=== PATIENT | female | born 1970 | race Caucasian/White ===

== ENCOUNTER → 2017-12-30 08:48 | Outpatient (CLI) | payer BC, SELFPAY ==
--- NOTE | 2017-12-30 08:52 | BI_ITS ---
MAMMOGRAPHY - BILATERAL SCREENING REASON FOR EXAM: Female, 47 years old. Routine annual screening examination. PERTINENT HISTORY: Aunt with breast cancer. TECHNIQUE: Digital bilateral breast luis (3D mammographic acquisition) in the CC and MLO projections. 2-D mediolateral oblique (MLO) and craniocaudad (CC) views of both breasts were obtained. CAD: Full Field Digital Mammography with Computer Added Detection was performed. COMPARISON: Comparison is made with prior study dated October 28, 2016 and October 24, 2015. FINDINGS: Breast Composition: The breasts are heterogeneously dense, which may obscure small masses. There are no dominant masses or suspicious calcifications. Stable benign-appearing left axillary lymph nodes. No other significant abnormalities are identified. There has been no significant change since the prior study. BI/SCREENING MAMM (CAD), BILAT IMPRESSION: Stable bilateral screening mammogram. Yearly follow-up mammogram recommended. (A) ASSESSMENT CATEGORY: BIRADS Category 2: Benign. A letter regarding these results will be sent to the patient by the facility within 30 days. Approximately 10% of breast cancers are not detected by mammography. A normal mammogram should not delay biopsy of a clinically suspicious abnormality. [id number] Electronically Signed: Jordon Real MD at 10:44 EDT Tel [phone], Service support ,
[2018-01-04 11:21] LABS: HPV Reflexed? NOT INDICATED
== END ==
PROVIDERS: Family Provider Internal Medicine; PCP Internal Medicine; Visit Provider Obstetrics & Gynecology
DX: Z12.31 Encounter for screening mammogram for malignant neoplasm of breast (principal); Z12.4 Encounter for screening for malignant neoplasm of cervix
CPT/HCPCS: 77063; 77067; 88175; G0145

== ENCOUNTER → 2018-02-15 13:10 | Outpatient (CLI) | payer SELFPAY ==
--- NOTE | 2018-02-15 13:14 | CT_ITS ---
STUDY: CT CHEST WITHOUT CONTRAST REASON FOR EXAM: Female, 47 years old. Elevated cholesterol. This is a cardiac over read examination. RADIATION DOSAGE (If Supplied By Facility): CTDIvol = ( 12.19 ) mGy, DLP = ( 170.66 ) mGycm TECHNIQUE: Transaxial imaging was performed without the administration of intravenous contrast material. Individualized dose optimization techniques were used for this CT. COMPARISON: None. FINDINGS: Small benign-appearing bilateral axillary lymph nodes. The lungs are normal. There is no demonstrated pleural abnormality. Normal heart and pericardium. Normal mediastinum. Normal hilar regions. Normal unenhanced pulmonary arteries. Normal aorta arch and descending thoracic aorta. There are degenerative changes of the thoracic spine. There is no demonstrated abnormality of the visualized upper abdomen. CT/Limited Chest CT w/CCTA IMPRESSION: Normal unenhanced CT Chest examination. Electronically Signed: Jordon Real MD at 9:41 EST Tel [phone], Service support ,
[2018-02-15 13:22] VITALS: BP 106/50; PULSE 66; RESP 18; O2SAT 98; BMI 30.7
--- NOTE | 2018-02-15 17:53 | CA.SCORE ---
Calcium Scoring Date of Study:: 02/15/18 Coronary Calcium Scoring: Coronary calcium score: 0.0 Conclusion: Coronary calcium score: 0.0 Results: The patient underwent high resolution CT imaging of the chest on 02/15/2018. Images were examined and analyzed for the presence and extent of coronary artery calcification using coronary calcium quantification software. The patient was reported as tolerating the procedure well with no obvious complications. The coronary calcium score was reported at 0.0. Based upon pre-published reference tables this is indicative of no identifiable atherosclerotic plaque with very low risk of cardiovascular disease with less than 5% chance of the presence of coronary artery disease. Impression: Coronary calcium score: 0.0 This note was generated with InflaRxation software. It may contain incorrect words, spelling, and punctuation that were not noted in checking the note before signing.
--- NOTE | 2018-02-15 17:56 | CCTA_ITS ---
Calcium Scoring Date of Study:: 02/15/18 Coronary Calcium Scoring: Coronary calcium score: 0.0 Conclusion: Coronary calcium score: 0.0 Results: The patient underwent high resolution CT imaging of the chest on 02/15/2018. Images were examined and analyzed for the presence and extent of coronary artery calcification using coronary calcium quantification software. The patient was reported as tolerating the procedure well with no obvious complications. The coronary calcium score was reported at 0.0. Based upon pre-published reference tables this is indicative of no identifiable atherosclerotic plaque with very low risk of cardiovascular disease with less than 5% chance of the presence of coronary artery disease. Impression: Coronary calcium score: 0.0 This note was generated with NativeEnergyation software. It may contain incorrect words, spelling, and punctuation that were not noted in checking the note before signing.
== END ==
PROVIDERS: Family Provider Internal Medicine; PCP Internal Medicine; Referring Provider Internal Medicine; Visit Provider Internal Medicine
DX: E78.00 Pure hypercholesterolemia, unspecified (principal); R79.89 Other specified abnormal findings of blood chemistry
CPT/HCPCS: 75571; 76380

== ENCOUNTER → 2018-05-07 09:28 | Outpatient (CLI) | payer BC, SELFPAY ==
[2018-02-15 13:22] VITALS: BMI 30.7
== END ==
PROVIDERS: Family Provider Internal Medicine; PCP Internal Medicine; Referring Provider Internal Medicine; Visit Provider Internal Medicine
DX: E78.00 Pure hypercholesterolemia, unspecified (principal)
CPT/HCPCS: 36415; 80061; 83704

== ENCOUNTER 2018-07-22 07:00 | Outpatient (RCR) | payer BC, SELFPAY ==
--- NOTE | 2018-07-12 18:02 | HP.PTEVAL ---
Patient's Visit Information CRISTOFER NEWTON is a 47 year old F referred to Physical Therapy by Eileen Wayne MD with a diagnosis of BPPV. Date of Evaluation: 07/12/18 Physical Therapist: Boone Pham DPT, OCS, CSCS - Visit Plan Frequency: 1-2x /Week Duration: 2-4 Weeks Plan: 1-2x/week for 2-4 weeks as needed for positional treatments adn enusre return to functiona nd balance. - Subjective Findings: Started vertigo last upon waking, nauseous adn dizzy. Walked into wall in the morning. Spinning if she moves head too much. Spins at home when lie down adn then got nauseous. Lasted a few minutes. Upon moving she just does not feel right. Sleeping is OK unless she turns. 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 No hobbies. Shops and hangs out with friends btu currently avoids walking due to this feeling. Basic aDLS are OK just careful, unable to bend fast. - Objective Walks and trasnfers I. c/s AROM WFL but hesitant to look up and down. no pain. 4/5 UE strength. Balance is good btu does not feel steady. - L Hallpike, + R hallpike for up torsional nystagmus 8 seconds, treated with R Daija 2x, then negative. Walkd out normally - Balance Scores Functional Gait Assessment Score: 28 % Disability: 6.6700 - Goals Goal 1:: Lie down and bend over without dizzyness. Goal Time Frame: 2-4 Weeks Goal 2:: Back to walking with friends without issues Goal Time Frame: 4-6 Weeks Goal 3:: FGA Goal Time Frame: 2-4 Weeks - Rehabilitation Potential Physical Therapy Diagnosis: BPPV R post canal. Rehabilitation Potential: Good - Anticipated Interventions Patient/Client Instruction: Educate patient on: Condition, Plan of Care For the Purpose of:: To increase tolerance to activity/condition/position, To improve ability of physical actions for home/community/work/leisure Comment: posional and return to function For the Purpose of:: To increase tolerance to activity/condition/position, To improve ability of physical actions for home/community/work/leisure Thank you for the opportunity to evaluate your patient. For Medicare and Medicare HMO plans, please review the plan of care and approve it. It will need to be FAXED BACK to us at [phone] for Medicare purposes. For Medicare only, by signing this I certify the plan of care. Please let me know if there are questions or concerns regarding this plan of care. Physician Signature: Date:
--- NOTE | 2018-07-22 07:11 | HP.PTDCSUM ---
HP - PT D/C Summary It has been my pleasure to treat CRISTOFER NEWTON under orders from Eileen Wayne MD, for the diagnosis of BPPV for a total of 2 visit(s). Discharge Date: 07/22/18 Please see the following information for a summary of their discharge status. - Subjective Subjective: No spinning , feel much better. Has felt 100% for the majority of the week. Activities pretty normal. To Dr. Wayne. Balance feels good. - Overall Improvement % Improvement: 100 - Objective Objective/Function: - B hallpike today and - roll test. Balance better and feeling normal. - Goals Goal 1:: Lie down and bend over without dizzyness. Goal Progress: Goal Met Goal 2:: Back to walking with friends without issues Goal Progress: Goal Met Goal 3:: FGA Goal Progress: Goal Met - Plan Plan: D/C, dizzyness resolved, will contact doctor if it returns. - D/C Information Discharge Comments: Did have positional vertigo and treated successfully. Resolved. Will contact doctor if it returns. If there are questions or concerns regarding this patient's physical therapy, please feel free to call me at [phone]. Thank you for the referral of this patient. Sincerely, Boone Pham, DPT, OCS, CSCS
== END 2018-07-22 16:16 | disposition home or self-care (01) ==
LOC: PT 07:00
PROVIDERS: Family Provider Internal Medicine; PCP Internal Medicine; Referring Provider Internal Medicine; Visit Provider Internal Medicine
DX: H81.10 Benign paroxysmal vertigo, unspecified ear (principal)
CPT/HCPCS: 97161; 97530

== ENCOUNTER → 2018-12-31 08:51 | Outpatient (CLI) | payer BC, SELFPAY ==
--- NOTE | 2018-12-31 08:54 | BI_ITS ---
MAMMOGRAPHY - BILATERAL SCREENING REASON FOR EXAM: Female, 48 years old. Routine annual screening examination. PERTINENT HISTORY: Aunt with breast cancer. TECHNIQUE: Digital bilateral breast bryan (3D mammographic acquisition) in the CC and MLO projections. 2-D mediolateral oblique (MLO) and craniocaudad (CC) views of both breasts were obtained. CAD: Full Field Digital Mammography with Computer Added Detection was performed. COMPARISON: Comparison is made with prior examination dated December 30, 2017 and October 28, 2016. FINDINGS: Breast Composition: The breasts are heterogeneously dense, which may obscure small masses. There are no dominant masses or suspicious calcifications. Stable benign-appearing bilateral axillary lymph nodes. No other significant abnormalities are identified. There has been no significant change since the prior study. BI/SCREEN MAMM (CAD) W/BRYAN BILAT IMPRESSION: Stable bilateral screening mammogram. Yearly follow-up mammogram recommended. (A) ASSESSMENT CATEGORY: BIRADS Category 2: Benign. A letter regarding these results will be sent to the patient by the facility within 30 days. Approximately 10% of breast cancers are not detected by mammography. A normal mammogram should not delay biopsy of a clinically suspicious abnormality. [id number] Electronically Signed: Jordon Real, at 8:31 EDT , Service support ,
== END ==
PROVIDERS: Family Provider Internal Medicine; PCP Internal Medicine; Referring Provider Obstetrics & Gynecology; Visit Provider Obstetrics & Gynecology
DX: Z12.31 Encounter for screening mammogram for malignant neoplasm of breast (principal); Z80.3 Family history of malignant neoplasm of breast
CPT/HCPCS: 77063; 77067

== ENCOUNTER → 2019-01-02 17:55 | Outpatient (CLI) | payer BC, SELFPAY ==
[2018-02-15 13:22] VITALS: BMI 30.7
[2019-01-05 14:59] LABS: HPV APTIMA, High Risk Negative (Negative)
== END ==
PROVIDERS: Family Provider Internal Medicine; PCP Internal Medicine; Referring Provider Obstetrics & Gynecology; Visit Provider Obstetrics & Gynecology
DX: Z12.4 Encounter for screening for malignant neoplasm of cervix (principal)
CPT/HCPCS: 87086; 87088; 87624; 88175; G0145

== ENCOUNTER → 2020-01-10 12:17 | Outpatient (CLI) | payer BC, SELFPAY ==
--- NOTE | 2020-01-10 12:20 | BI_ITS ---
MAMMOGRAPHY - BILATERAL SCREENING REASON FOR EXAM: Female, 49 years old. Routine annual screening examination. PERTINENT HISTORY: Aunt with breast cancer. TECHNIQUE: Digital bilateral breast bryan (3D mammographic acquisition) in the CC and MLO projections. 2-D mediolateral oblique (MLO) and craniocaudad (CC) views of both breasts were obtained. CAD: Full Field Digital Mammography with Computer Added Detection was performed. COMPARISON: Comparison is made with prior study dated 12/31/2018 and 12/30/2017. FINDINGS: Breast Composition: The breasts are heterogeneously dense, which may obscure small masses. There are no dominant masses or suspicious calcifications. Benign appearing left axillary lymph nodes. No other significant abnormalities are identified. There has been no significant change since the prior study. BI/SCREEN MAMM (CAD) W/BRYAN BILAT IMPRESSION: Stable bilateral screening mammogram. Yearly follow-up mammogram recommended. (A) ASSESSMENT CATEGORY: BIRADS Category 2: Benign. A letter regarding these results will be sent to the patient by the facility within 30 days. Approximately 10% of breast cancers are not detected by mammography. A normal mammogram should not delay biopsy of a clinically suspicious abnormality. [id number] Electronically Signed: Jordon Real, at 14:10 EDT , Service support ,
== END ==
PROVIDERS: PCP Internal Medicine; Referring Provider Obstetrics & Gynecology; Visit Provider Obstetrics & Gynecology
DX: Z12.31 Encounter for screening mammogram for malignant neoplasm of breast (principal); Z80.3 Family history of malignant neoplasm of breast
CPT/HCPCS: 77063; 77067

== ENCOUNTER → 2020-01-27 10:33 | Outpatient (CLI) | payer BC, SELFPAY ==
[2018-02-15 13:22] VITALS: BMI 30.7
[2020-01-27 11:23] LABS: AST(SGOT) 23 U/L (15-37); Alanine Aminotransfer ALT/SGPT 39 U/L (13-56); Albumin, Serum 3.6 g/dL (3.2-5.0); Alkaline Phosphatase 117 U/L (45-117); Bilirubin, Direct 0.17 mg/dL (0.00-0.30); Globulin 3.8 g/dL (2.2-4.2); Protein, Total 7.4 g/dL (6.4-8.2)
== END ==
PROVIDERS: PCP Internal Medicine; Referring Provider Internal Medicine; Visit Provider Internal Medicine
DX: E78.00 Pure hypercholesterolemia, unspecified (principal)
CPT/HCPCS: 36415; 80061; 80076; 83704

== ENCOUNTER 2020-07-04 06:51 | Outpatient (RCR) | payer BC, SELFPAY ==
--- NOTE | 2020-07-04 11:42 | HP.PTEVAL_ITS ---
Patient's Visit Information CRISTOFER NEWTON is a 49 year old F referred to Physical Therapy by Dr. Eileen Wayne MD with a diagnosis of R hip and leg pain. Date of Evaluation: 07/04/20 Physical Therapist: Lan Byrne DPT - Visit Plan Frequency: 1-2x /Week Duration: 4-6 Weeks Plan: Start with lumbar extension progression including prone press ups, standing lumbar extension, and hip extension progression with joint mobs. I educated patient about frequency of exercises and not sitting for too long. Pt. to get up atleast every hour and walk and extend lumbar spine. Pt. consents. Once symptoms have started to resolve add in core stability exercise and progre ss walking program. - Subjective Pt. is here today for her initial evaluation with diagnosis of R hip and leg pain. Pt. reports having pain for a few months now. No mech of injury. Pt. reports R sided leg pain that starts on the lateral aspect of leg and radiates ti her groin and down her leg. Pt. reports increased pain with increased activity. Ice seems to help and sleeping in reclining chair or with knees proped with pillow. Pt. has been more sedintary since start of COV and is working at home. Pt. reports sitting at her desk at work upto 4 hours at a time without getting up. Pt. is hopeful to - Pain R hip Pain Intensity (Out of 10): 6 - Objective POSTURE: Pt. has general flexed pposture. Equal iliac crest heights. No lateral shift, no off loading of LEs. PALPATION: Pt. has no tenderness at anterior hip, greater trochanter, or HS musculature. Pt. has stiffness noted in her lumbar spine and into hip extension. NEURO: Pt. has normal sensation with light touch. Pt. has normal DTR of BLEs throughout achilles and patellar tendons. Pt. to rise on heels and toes without issues. ROM: Lumbar spine: flexion min loss NE (tightness), extension min loss NE, SB nil loss NE, rotation nil loss NE. TIght HS bilaterally, TIght hip flexors bilaterally. Tightness in her IT band. MMT: PT. has dencent overall strength in her BLEs. RLE: ankle/knee 5/5 throughout; hip- flexion 4/5, abd 4/5, ext 4/5. LLE- ankle/knee 5/5 throughout; hip- flexion 4+/5, abd 4+/5, ext 4/5. Core strength-poor. GAIT: Pt. has normal gait pattern, sight collapsing down on R side during R stance phace, but overall had decent gait pattern. Pt. did describe increased R anterior and medial thigh pain with intial walking. - Special Tests L/S Slump test left side: Negative L/S Slump test right side: Negative L/S Left Straight Leg Raise: Negative L/S Right Straight Leg Raise: Negative L/S Left Femoral Nerve Tension: Negative L/S Right Femoral Nerve Tension: Negative Lumbar Standing: Flexion - Mechanical Response: No effect Lumbar Standing: Flexion - Symptoms During Testing: No effect Lumbar Standing: Flexion - Symptoms After Testing: No effect Lumbar Standing: Extension - Mechanical Response: No effect Lumbar Standing: Extension - Symptoms During Testing: No effect Lumbar Standing: Extension - Symptoms After Testing: Better Lumbar Standing: Right Side Glides - Mechanical Response: No effect Lumbar Standing: Right Side [place] - Symptoms During Testing: No effect Lumbar Standing: Right Side [place] - Symptoms After Testing: No effect Lumbar Standing: Left Side [place] - Mechanical Response: No effect Lumbar Standing: Left Side [place] - Symptoms During Testing: No effect Lumbar Standing: Left Side [place] - Symptoms After Testing: No effect Lumbar Lying: Extension - Mechanical Response: No effect Lumbar Lying: Extension - Symptoms During Testing: No effect Lumbar Lying: Extension - Symptoms After Testing: Better - Goals Goal 1:: LTG: Pt. to be I with HEP. Goal Time Frame: 2-4 Weeks Goal 2:: LTG: Pt. to ambulate unlimited distances without R hip or R leg pain. Goal Time Frame: 2-4 Weeks Goal 3:: STG: Pt. to has 0-1/10 pain in R hip and leg after driving or sitting short distances/times. Goal Time Frame: 2-4 Weeks Goal 4:: LTG: Pt. to negotiate steps with reciprocal pattern with 1 HR without increase in RLE pain. Goal Time Frame: 4-6 Weeks Goal 5:: LTG: Pt. to be educated in core strengthening and prophalxis techniques to reduce risk for future occurance. Goal Time Frame: 4-6 Weeks - Rehabilitation Potential Physical Therapy Diagnosis: Pt. has signs and symptoms consistent with R leg pain that starts in anterior lateral hip and does extend into medial thigh. Pt. has greatest issues with initial walking after getting up. She does have some tightness in her quad, hip flexor and IT band. Pt. did have a positive response with trunk extension and hip extension progression. I woule like her to start with trunk extension progression x6 times per day for 1 weeks. Rehabilitation Potential: Excellent - Anticipated Interventions Patient/Client Instruction: Educate patient on: Condition, Plan of Care, Risk Factors, Benefits of Fitness Program For the Purpose of:: To facilitate caregiver knowledge, To improve self management, To prevent re-injury, To improve ability to perform tasks related to life management, To improve tolerance to ADL's Therapeutic Exercise to Include: Strength training, Power training, Body mechanics, Postural training, Flexibilty training, Passive ROM, Active ROM, Dynamic Lumbar Stabilization, Girish Exercises For the Purpose of:: To decrease pain, To increase ROM, To improve nutrient delivery to tissue, To increase oxygenation perfusion, To improve muscle performance and motor function, To improve ability to perform ADL's, To improve gait and locomotor functions, To improve health of tissue, To decrease soft tissue restriction, To increase flexibility/ROM Manual Therapy Techniques to Include: Mobilization For the Purpose of:: To decrease pain, To increase ROM, To improve nutrient delivery to tissue, To increase oxygenation perfusion Thank you for the opportunity to evaluate your patient. For Medicare and Medicare HMO plans, please review the plan of care and approve it. It will need to be FAXED BACK to us at [phone] for Medicare purposes. For Medicare only, by signing this I certify the plan of care. Please let me know if there are questions or concerns regarding this plan of care. Physician Signature: Date:
--- NOTE | 2020-09-18 15:20 | HP.PT.NRP ---
CRISTOFER NEWTON was seen in my office for initial evaluation on 07/04/20. The following Plan of Care was established for this patient: Initial Frequency: 1-2x /Week Initial Duration: 4-6 Weeks Patient/Client Instruction: Educate patient on: Condition, Plan of Care, Risk Factors, Benefits of Fitness Program For the Purpose of:: To facilitate caregiver knowledge, To improve self management, To prevent re-injury, To improve ability to perform tasks related to life management, To improve tolerance to ADL's Therapeutic Exercise to Include: Strength training, Power training, Body mechanics, Postural training, Flexibilty training, Passive ROM, Active ROM, Dynamic Lumbar Stabilization, Girish Exercises For the Purpose of:: To decrease pain, To increase ROM, To improve nutrient delivery to tissue, To increase oxygenation perfusion, To improve muscle performance and motor function, To improve ability to perform ADL's, To improve gait and locomotor functions, To improve health of tissue, To decrease soft tissue restriction, To increase flexibility/ROM Manual Therapy Techniques to Include: Mobilization For the Purpose of:: To decrease pain, To increase ROM, To improve nutrient delivery to tissue, To increase oxygenation perfusion This patient was last seen in our office 07/04/20. Pertinent comments regarding their Physical therapy will appear below: Pt. was seen for her initial evaluation in PT with diagnosis of hip pain. Pt. was given lumbar extension progression of exercises to assist. Pt. had a positive response during her initial evaluation. Pt. was to trial these exercises for 1 week and follow up with PT if needed. PT. has not been back and has not been seen in PT for ~8 weeks. Pt. will be DC from PT at this point in time. At this point I will be discontinuing this patient from physical therapy. I would be happy to see this patient again in the future if found appropriate by the physician. Thank you! LUISA ConnT
== END 2020-07-04 19:00 | disposition home or self-care (01) ==
LOC: PT 06:51
PROVIDERS: PCP Internal Medicine; Referring Provider Internal Medicine; Visit Provider Internal Medicine
DX: M79.604 Pain in right leg (principal); M25.551 Pain in right hip
CPT/HCPCS: 97110; 97161

== ENCOUNTER → 2021-02-12 08:15 | Outpatient (CLI) | payer BC, SELFPAY ==
--- NOTE | 2021-02-12 08:17 | BI_ITS ---
MAMMOGRAPHY - BILATERAL SCREENING REASON FOR EXAM: Female, 50 years old. Routine annual screening examination. PERTINENT HISTORY: Aunt with breast cancer. TECHNIQUE: Digital bilateral breast bryan (3D mammographic acquisition) in the CC and MLO projections. 2-D mediolateral oblique (MLO) and craniocaudad (CC) views of both breasts were obtained. CAD: Full Field Digital Mammography with Computer Added Detection was performed. COMPARISON: Comparison is made with prior study dated 01/10/2020 and 12/31/2018. FINDINGS: Breast Composition: The breasts are heterogeneously dense, which may obscure small masses. There are no dominant masses or suspicious calcifications. Stable small benign-appearing bilateral axillary lymph nodes. No other significant abnormalities are identified. There has been no significant change since the prior study. BI/SCRN MAMM (CAD)W/BRYAN BILAT IMPRESSION: Stable bilateral screening mammogram. Yearly follow-up mammogram recommended. (A) ASSESSMENT CATEGORY: BIRADS Category 2: Benign. A letter regarding these results will be sent to the patient by the facility within 30 days. Approximately 10% of breast cancers are not detected by mammography. A normal mammogram should not delay biopsy of a clinically suspicious abnormality. [id number] Electronically Signed: Jordon Real MD at 9:46 EDT , Service support ,
== END ==
PROVIDERS: PCP Internal Medicine; Referring Provider Obstetrics & Gynecology; Visit Provider Obstetrics & Gynecology
DX: Z12.31 Encounter for screening mammogram for malignant neoplasm of breast (principal)
CPT/HCPCS: 77063; 77067

== ENCOUNTER → 2021-08-08 | Outpatient (CLI) | payer BC, SELFPAY ==
[2021-08-08 11:59] LABS: AST(SGOT) 22 U/L (15-37); Alanine Aminotransfer ALT/SGPT 52 U/L (13-56); Albumin, Serum 3.9 g/dL (3.2-5.0); Alkaline Phosphatase 132 U/L (45-117); Bilirubin, Direct 0.22 mg/dL (0.00-0.30); Globulin 3.7 g/dL (2.2-4.2); Protein, Total 7.6 g/dL (6.4-8.2)
[2021-08-08 12:15] LABS: PTHIN 125.7 pg/mL (18.4-80.1)
[2021-08-09 17:07] LABS: HEPATITIS B SURFACE AG Negative (Negative); Hepatitis A IgM Antibody Negative (Negative); Hepatitis B Core AB IgM Negative (Negative)
[2021-08-09 20:16] LABS: Hep C Antibodies 0.1 s/co ratio (0.0-0.9)
== END | disposition home or self-care (01) ==
LOC: LAB 11:04
PROVIDERS: PCP Internal Medicine; Referring Provider Internal Medicine; Visit Provider Internal Medicine
DX: E78.00 Pure hypercholesterolemia, unspecified (principal); E83.52 Hypercalcemia; R79.89 Other specified abnormal findings of blood chemistry
CPT/HCPCS: 36415; 80074; 80076; 82330; 83970

== ENCOUNTER → 2021-09-11 | Outpatient (CLI) | payer BC, SELFPAY ==
--- NOTE | 2021-09-11 10:03 | NM_ITS ---
Nuclear medicine parathyroid SESTAMIBI scan INDICATION: Hyperparathyroidism TECHNIQUE: 24.7 mCi of TECHNETIUM 99M labeled SESTAMIBI injected intravenously with immediate and delayed imaging of the neck/chest. FINDINGS: Initial imaging demonstrates normal, expected activity of the salivary glands and homogenous activity throughout the thyroid gland. On delayed imaging there is relative washout of isotope from the thyroid gland. No ectopic accumulation of isotope. NM/Parathyroid Scan IMPRESSION: No evidence of parathyroid adenoma. Electronically Signed: Rodri Mckenna MD ([place]) at 13:38 EDT ,
== END | disposition home or self-care (01) ==
LOC: NM 10:02
PROVIDERS: PCP Internal Medicine; Referring Provider Internal Medicine; Visit Provider Internal Medicine
DX: E21.3 Hyperparathyroidism, unspecified (principal)
CPT/HCPCS: 78070; A9500

== ENCOUNTER → 2021-09-20 | Outpatient (CLI) | payer BC, SELFPAY ==
[2021-09-20 11:54] LABS: ALB/GLOB Ratio 1.1 RATIO (0.9-2.4); AST(SGOT) 26 U/L (15-37); Alanine Aminotransfer ALT/SGPT 49 U/L (13-56); Albumin, Serum 3.8 g/dL (3.2-5.0); Alkaline Phosphatase 143 U/L (45-117); Anion Gap 3 (5-15); BUN 11 mg/dL (7-18); BUN/Creat Ratio 14.9 RATIO (10-20); Calcium,Total 10.5 mg/dL (8.5-10.1); Chloride 108 mmol/L (98-107); Cholesterol 163 mg/dL (200); Creatinine, Serum 0.74 mg/dL (0.55-1.02); EST Glomerular Filtration Rate 89 mL/min (>60); Est Glom Filt Rate - Afr Amer 107 mL/min (>60); Globulin 3.4 g/dL (2.2-4.2); Glucose 102 mg/dL (74-106); High Density Lipoprotein 38 mg/dL; Potassium 4.2 mmol/L (3.5-5.1); Protein, Total 7.2 g/dL (6.4-8.2); Sodium Level 140 mmol/L (136-145); Triglycerides 111 mg/dL; Very Low Density Lipoprotein 22 mg/dL (5-40)
== END | disposition home or self-care (01) ==
LOC: LAB 10:59
PROVIDERS: PCP Internal Medicine; Referring Provider Internal Medicine; Visit Provider Internal Medicine
DX: R89.9 Unspecified abnormal finding in specimens from other organs, systems and tissues (principal); E78.00 Pure hypercholesterolemia, unspecified
CPT/HCPCS: 36415; 80053; 80061

== ENCOUNTER → 2021-10-09 | Outpatient (CLI) | payer BC, SELFPAY ==
--- NOTE | 2021-10-09 09:23 | US_ITS ---
STUDY: ABDOMINAL ULTRASOUND - RIGHT UPPER QUADRANT REASON FOR VISIT: Female, 51 years old ELEVATED LFT''s TECHNIQUE: Ultrasound evaluation of the right upper quadrant was performed with real-time and static reaves-scale imaging. TECHNICAL QUALITY: Limited. Examination limited by bowel gas. COMPARISON: None. FINDINGS: Liver: The liver measures 14.2 cm. There is increased echogenicity consistent with fatty infiltration. The bile ducts are within normal limits. There is hepatic color flow. The direction of portal flow is hepatopetal. There is no demonstrated mass lesion. Gallbladder: The patient is status post cholecystectomy. Common Bile Duct (C.B.D.): The common bile duct measures 6 mm. Pancreas: There is nonvisualization of the pancreas due to overlying bowel gas. Right Kidney: Normal size of the right kidney. The right kidney measures 10.7 cm x 5.9 cm x 5.2 cm. Normal renal cortex. The right cortex measures 1.5 cm. There is a 6.5 cm x 5.8 cm x 4.9 cm heterogeneous complex solid and cystic mass in the inferior medial aspect of the right kidney. A neoplastic process should be ruled out. Correlation with CT scan is recommended. There is no right hydronephrosis. US/Liver IMPRESSION: Fatty infiltration of the liver. Prior cholecystectomy. 6.5 cm x 5.8 cm x 4.9 cm heterogeneous solid and cystic mass arising from the inferior medial aspect of the right kidney as described. A neoplastic process should be ruled out. Correlation with a CT scan is recommended. Electronically Signed: Jordon Real MD at 11:04 EDT ,
== END | disposition home or self-care (01) ==
PROVIDERS: PCP Internal Medicine; Visit Provider Internal Medicine
DX: K76.0 Fatty (change of) liver, not elsewhere classified (principal); N28.89 Other specified disorders of kidney and ureter; R94.5 Abnormal results of liver function studies; Z90.49 Acquired absence of other specified parts of digestive tract
CPT/HCPCS: 76705

== ENCOUNTER → 2021-10-10 | Outpatient (CLI) | payer BC, SELFPAY ==
--- NOTE | 2021-10-10 09:57 | CT_ITS ---
STUDY: CT ABDOMEN WITH AND WITHOUT CONTRAST REASON FOR EXAM: Female, 51 years old. RENAL MASS RADIATION DOSAGE (If Supplied By Facility): CTDIvol = ( 28.92 ) mGy, DLP = ( 3418.66 ) mGycm TECHNIQUE: Transaxial images were obtained pre and post I.V. administration of IV 100mL Isovue-300, and oral contrast. Sagittal and coronal images were reconstructed. Individualized dose optimization techniques were used for this CT. COMPARISON: Ultrasound 10/09/2021 FINDINGS: The visualized lung bases are unremarkable. The visualized portions of the heart are within normal limits. There is decreased attenuation of the liver consistent with steatosis. There are surgical clips in the gallbladder fossa consistent with a prior cholecystectomy. Normal spleen. Normal pancreas. Normal bilateral adrenal glands. 6 cm round solid heterogeneously enhancing mass of the medial aspect of the lower pole right kidney worrisome for renal cell carcinoma. No evidence of tumor thrombus within the right renal vein or inferior vena cava. No adjacent retroperitoneal lymphadenopathy. Normal left kidney. Normal visualized stomach. Normal small intestine. Normal colon. Normal abdominal aorta. Normal inferior vena cava. Normal retroperitoneum. Normal abdominal wall. Mild levoscoliosis of the lumbar spine with degenerative disc disease. CT/Abdomen W/WO IV Contrast IMPRESSION: 6 cm solid heterogeneously enhancing mass of the medial aspect of the lower pole right kidney most worrisome for renal cell carcinoma. No evidence of metastatic disease. Electronically Signed: Jayden Delgado MD at 10:46 EDT ,
--- NOTE | 2021-10-10 10:47 | CYSPIN_PTH ---
PATIENT: CRISTOFER NEWTON LOC: [place] U#:[id number] AGE/SX: 51/F ROOM: RE10/10/[address]: Dr. Eileen Wayne MD : 1970 BED: DIS: 10/10/2021 SPEC #: [id number] RECD: 10/10/21 13:15 STATUS: SANDRITA PEDRAZA #: [id number] TAMERA: 10/10/21 10:[address]: Eileen Wayne DEPT: CYTOLOGY RECD BY: Reginaldo Mirza Tissues: Urine Procedures: Pap Stain (control) Special Stain Group II Cytospin Fluid HEADER OPERATION: Not noted PRE-OP DIAGNOSIS: Right kidney mass TISSUE SUBMITTED: Urine for cytology DIAGNOSIS CYTOLOGY Urine for cytology (cytospin): Negative for malignant cells. See comment. AM:daily 10/14/2021 COMMENT The specimen primarily contains squamous epithelial cells. Clinical correlation is suggested. CYTOLOGY STUDY Slides are reviewed. CYTOLOGY GROSS Received is 15 ml of yellow hazy fluid labeled with the patient's name and and designated per the requisition as urine. Submitted for cytology preparation. / daily 10/10/2021 TC:5 CPT: 52252
[2021-10-10 12:15] LABS: Bacteria 0 SEEN /hpf (None Seen); Cytology, Body Fluid / CSF SEE PATHOLOGY REPORT; Mucous, Urine 0 SEEN /hpf (<or=2+); Red Blood Cells-Urine 0 SEEN /hpf (0-5); Squamous Epithelial Cells - UA 0 SEEN /hpf (5-10); White Blood Cells 0 SEEN /hpf (0-5)
[2021-10-10 12:19] LABS: Color, Urine Yellow (Yellow); Glucose, Dipstick Normal (Normal); Ketone-Dipstick Negative (Negative); Leukocyte Esterase-Dipstick Negative /ul (Negative); Nitrite-Dipstick Negative (Negative); Occult Blood-Urine Negative /ul (Negative); Protein-Dipstick Negative (Negative); Urine Bilirubin Dipstick Negative (Negative); Urine Clarity Clear (Clear); Urine Urobilinogen Normal (Normal)
== END | disposition home or self-care (01) ==
PROVIDERS: PCP Internal Medicine; Referring Provider Internal Medicine; Visit Provider Internal Medicine
DX: N28.89 Other specified disorders of kidney and ureter (principal)
CPT/HCPCS: 74170; 81001; 88108; 88313; Q9967

== ENCOUNTER 2021-11-07 13:00 | Inpatient (IN) | payer BC, SELFPAY ==
[2021-11-07] VITALS (10 sets, daily range): BP systolic 131–154; BP diastolic 75–89; PULSE 85–104; RESP 15–18; TEMP 2.4–36.9; O2SAT 92–99; BMI 41.6
--- NOTE | 2021-11-07 | KID_PTH ---
PATIENT: CRISTOFER NEWTON LOC: MS3 U#:[id number] AGE/SX: 51/F ROOM: [facility] [place] RE11/07/[address]: Dr. Zach Alanis MD : 1970 BED: 1 DIS: 11/10/2021 SPEC #: [id number] RECD: 11/07/21 15:31 STATUS: SANDRITA PEDRAZA #: [id number] TAMERA: 11/07/21 00:[address]: Zach Alanis DEPT: SURGICAL PATHOLOGY RECD BY: Gabrielle Cheatham ENTERED: 11/10/21 09:02 SP TYPE: KIDNEY OTHR DR: Dr. Eileen Wayne MD Tissues: Kidney, NOS Procedures: Frozen Section (charge) Surgery Specimen Level V HEADER OPERATION: Lap robotic radical nephrectomy PRE-OP DIAGNOSIS: Right renal mass TISSUE SUBMITTED: Right kidney, frozen section FROZEN SECTION DIAGNOSIS Right kidney, radical nephrectomy: Clear cell renal cell carcinoma. SJ:daily 11/07/2021 MICROSCOPIC DIAGNOSIS Right kidney, radical nephrectomy: Clear cell renal cell carcinoma. See cancer summary in the comment section. SJ:daily 11/11/2021 COMMENT KIDNEY CANCER SUMMARY Procedure ? radical nephrectomy Specimen laterality ? right Tumor site - middle Tumor size ? 5 cm in diameter Tumor focality - unifocal Histologic type ? clear cell renal cell carcinoma Sarcomatoid features ? not identified Rhabdoid features ? not identified Histologic grade ? predominantly grade 1 with focal minimal area of grade 2. Tumor necrosis - not identified Tumor extension ? tumor limited to kidney Margins ? uninvolved by invasive carcinoma. Lymphvascular invasion - not identified Regional lymph nodes ? no lymph nodes submitted or found. Pathologic findings in non-neoplastic kidney ? no significant pathologic changes. PATHOLOGIC STAGE: pT1b pNx pMx The above summary is in compliance with [employer] (CAP) Cancer Protocols Checklist and [place] [employer] on Cancer (AJCC), Staging Manual, 8th Ed. Case has been reviewed in consultation with Dr. Klein who concurs with the above diagnosis. IDC:AM MICROSCOPIC DESCRIPTION Slides are reviewed. GROSS DESCRIPTION Received fresh for frozen section diagnosis labeled with the patient's name is a specimen designated right kidney. The specimen consists of a right kidney containing a mass and is surrounded by an irregular envelope of fibroadipose tissue. The fibroadipose tissue measures up to 3 cm in thickness. Neoplasm does not extend into the perirenal fat and is not present at the soft tissue line of the specimen. The specimen weighs 585 gm and measures 21 x 13 x 7 cm. The mass involves the mid portion of the kidney. Dissection of the renal veins, particularly those draining the area of the mass does not show intravascular presence of the neoplasm. On section, the tumorous mass is roughly spherical and measures 5 cm in diameter. It is composed of an orange mass with focal area of hemorrhage. Area of necrosis or softening are not seen. The tumor does not invade the pelvicalyceal system, renal sinus. The tumor is sharply demarcated from the renal parenchyma which appears essentially unremarkable. Satellite nodules of tumor are not seen in the renal tissue. The adrenal gland is not present. A 4 cm segment of ureter is present and essentially unremarkable. Director [employer] sections are submitted in ten cassettes as follows: 1 - frozen section tumor, 2 - vascular and ureteric resection margins, 3 - tumor with adjacent perirenal adipose tissue, 4 - with adjacent renal tissue and perirenal adipose tissue including resection margin, 5 - renal sinus tissue with additional section ureter and renal vessel, 6 - uninvolved renal tissue, 7-10 - more sections of tumor. / SJ:daily 11/10/2021 TC:0 CPT: 43453, 82105
[2021-11-07] MEDS: Lactated Ringers 1,000 ML 15 ML IV ×2 (10:40→15:30)
[2021-11-07 11:01] LABS: Internal QC Validated? YES +Cl - CLEAR BKGD; Pregnancy, Urine Negative Negative
--- NOTE | 2021-11-07 13:03 | HP.PCM_ITS ---
HPI - General General Date of Admission: 11/07/21 Date of Service: 11/07/21 Chief Complaint: Right renal mass HPI Narrative CRISTOFER NEWTON, is a 51 F who presents with a large right renal mass in the central part of the kidney we talked about the difficulty and try to do a partial nephrectomy with such a large mass the risk of recurrence at the very likelihood that this could be a malignancy the very rare chance that this could be an oncocytoma or some type of benign tumor was also discussed with the patient we both agreed to go ahead and proceed with a radical nephrectomy suspected that this is cancer. And we will proceed with a right radical nephrectomy. [facility] Medical History Fatty liver High cholesterol Hypercalcemia Hyperparathyroidism Leg cramps Migraine headache Mixed hyperlipidemia Non-smoker Renal mass Shortness of breath on exertion Vertigo Vitamin D deficiency Wears glasses Home Medications arginine (L-arginine) 500 mg capsule 500 mg PO DAILY 10/23/21 [History Last Taken 11/06/21] cholecalciferol (vitamin D3) 25 mcg (1,000 unit) capsule 50 mcg PO DAILY 10/23/21 [History Last Taken 11/06/21] loratadine 10 mg tablet (Claritin) 10 mg PO DAILY 10/23/21 [History Last Taken 11/06/21] lutein 10 mg tablet 10 mg PO DAILY 10/23/21 [History Last Taken 11/06/21] multivitamin with minerals-folic acid 120 mcg chewable tablet (Centrum Adult 50 Plus Fresh-Fruity) 1 tab PO DAILY 10/23/21 [History Last Taken 11/06/21] norethindrone (contraceptive) 0.35 mg tablet 0.35 ea PO DAILY CONTROL 10/23/21 [History Last Taken 11/06/21] omega 4-gep-cnd-fish oil 60 mg-90 mg-500 mg capsule (Fish Oil) 3 cap PO DAILY 10/23/21 [History Last Taken 11/06/21] rosuvastatin 5 mg tablet 5 mg PO DAILY CHOLESTEROL 10/23/21 [History Last Taken 11/06/21] zinc sulfate 50 mg zinc (220 mg) tablet 50 mg PO DAILY 10/23/21 [History Last Taken 11/06/21] vitamin B complex 1 cap PO DAILY 11/04/21 [History Last Taken 11/06/21] docusate sodium 100 mg capsule (Colace) 100 mg PO BID #20 caps 11/07/21 [Rx Last Taken Unknown] oxycodone-acetaminophen 5 mg-325 mg tablet 1 tab PO Q6H PRN pain 7 days #14 tabs 11/07/21 [Rx Last Taken Unknown] Allergy/AdvReac Type Severity Reaction Status Date / Time No Known Allergies Allergy Verified 11/07/21 11:12 Family History Other Colon cancer Diabetes Surgical History History of hysteroscopy Hx laparoscopic cholecystectomy Hx of appendectomy Hx of colonoscopy Hx of tonsillectomy Social History Smoking Status: Never smoker alcohol intake: never Addt'l Information Additional Findings: ct scan ROS Constitutional Constitutional: Denies chills, fever(s) or malaise Eyes Eyes: Denies blurry vision or change in vision ENT HEENT: Reports none Cardiovascular Cardiovascular: Denies chest pain or palpitations Respiratory/Chest Respiratory/Chest: Denies cough or shortness of breath with exertion Gastrointestinal Gastrointestinal: Denies abdominal pain, constipation or diarrhea Musculoskeletal Musculoskeletal: Denies back pain, joint stiffness or joint swelling Integumentary Integumentary: Denies dry skin, jaundice, lesions or rash Neurologic Neurologic: Denies confusion, syncope or weakness Psychiatric Psychiatric: Reports none; Denies anxiety or depression Endocrine Endocrinology: Denies excessive sweating, fatigue or flushing Hematologic/Lymphatic Hematologic/Lymphatic: Denies anemia, easy bleeding or easy bruising Vital Signs Vital Signs Vital Signs: 11/07/21 10:59 11/07/21 10:59 Temperature 98.5 F Temperature Source Temporal Pulse Rate 99 Respiratory Rate 18 Respiratory Pattern Normal Blood Pressure 135/75 H Blood Pressure Mean 95 Blood Pressure Source Monitor Blood Pressure Position Semi-Fowlers Blood Pressure Location Left Arm Pulse Ox 99 Oxygen Delivery Method Room Air Weight Weight: 100 kg Body Mass Index (BMI) 41.6 Physical Exam Const alert and oriented x3 General Appearance: cooperative HEENT normocephalic, head/scalp atraumatic, EAC's normal and TM's normal bilaterally Eyes PERRL and EOMs intact bilaterally Pupil: sluggish Neck no lymphadenopathy, supple and no JVD General: trachea midline Lymph Lymphatic: no lymphadenopathy noted, lymphedema and lymphadenopathy Resp normal respiratory effort, normal air movement and clear to auscultation bilaterally Cardio regular rate, regular rhythm and peripheral pulses 2+ throughout GI soft to palpation, non-tender and non-distended Extremity normal capillary refill and no clubbing, cyanosis or edema General Extremity: no tenderness to palpation of joints or extremities Skin no rashes or lesions noted General Skin Exam: turgor normal Lesions: no lesions Rashes: no rashes Neuro CN's II-XII intact bilaterally Speech: speech normal Motor Exam: strength 5/5 throughout; Negative for general weakness Psych thought process normal, cooperative and affect normal Appearance: appropriate Results Lab / Micro Data Labs: Laboratory Results - last 24 hr 11/07/21 10:45: Urine Test Negative Assessment & Plan Assessment/Plan (1) Right renal mass: PLAN: Plan to proceed with a right radical nephrectomy.
--- NOTE | 2021-11-07 13:05 | DCINST_ITS ---
Discharge Instructions Diet Discharge Diet: No restrictions, Light diet - advance as tolerated and Soft diet Activity Discharge Activity: May Not Drive Return to work on:: 12/05/21 May shower in (days): 1 Dressing / Incision Call your doctor if you observe: Fever of 101 or Higher and Uncontrolled pain Cleanse incision/area with: Keep Dressing Clean & Dry Follow Up Care Please Follow Up With: Zach Alanis MD Test Results: Test results from this visit will be discussed in further detail at your follow- up appointment, if applicable. Discharge Plan Admission Primary Reason for Your Visit: Right radical nephrectomy Attending Provider: Zach Alanis Primary Care Provider: Eileen Wayne Discharge Orders/Prescriptions Prescriptions: New docusate sodium [Colace] 100 mg capsule 100 mg PO BID Qty: 20 0RF oxycodone-acetaminophen 5-325 mg tablet 1 tab PO Q6H PRN (Reason: pain) 7 Days Qty: 14 0RF Continued rosuvastatin 5 mg tablet 5 mg PO DAILY norethindrone (contraceptive) 0.35 mg tablet 0.35 ea PO DAILY Label Comments: TAKE 1 TABLET BY MOUTH ONCE DAILY Centrum Adult 50 Fresh-Fruity 120 mcg tablet,chewable 1 tab PO DAILY zinc sulfate 50 mg zinc (220 mg) tablet 50 mg PO DAILY loratadine [Claritin] 10 mg tablet 10 mg PO DAILY cholecalciferol (vitamin D3) 25 mcg (1,000 unit) capsule 50 mcg PO DAILY arginine (L-arginine) 500 mg capsule 500 mg PO DAILY lutein 10 mg tablet 10 mg PO DAILY Rx Instructions: give with meal/snack omega 9-hiu-gjk-fish oil [Fish Oil] 60-90-500 mg capsule 3 cap PO DAILY vitamin B complex Capsule 1 cap PO DAILY Referrals / Follow Up: Eileen Wayne MD [Primary Care Provider] - Zach Alanis MD [Med Staff - Active Staff] - Disposition Disposition (needs filled in before D/C Order can be placed): Home, Self Care
[2021-11-07] MEDS: Cefazolin 2 GM in 0.9% Normal Saline 100 ML IV (13:18)
[2021-11-07] MEDS: Bupivacaine 0.25% 30 ML Vial (13:25)
--- NOTE | 2021-11-07 16:17 | OP.PCM_ITS ---
Report of Operation Date of Procedure: 11/07/21 Pre-Operative Diagnosis: Right large renal mass Post-Operative Diagnosis: The same Surgery/Procedure Performed:: Laparoscopic robotic assisted radical nephrectomy Description of Surgical Findings:: This is a 51-year-old female was found to have a large mass in the hilum central part of the right kidney given the appearance on CAT scan it certainly looks very very suspicious for a malignancy it would be extremely difficult partial nephrectomy and therefore try to avoid excessive risk we have recommended we do a complete nephrectomy on the right side since is a central tumor it would be ex tremely difficult to do a partial. Patient is agreeable with this plan and ready to proceed with a radical nephrectomy. Patient was taken back to the operating room after smooth induction of general anesthesia she was placed supine on the operative table she had a BMI of 41, we then underwent a general anesthesia intubation catheter was placed in the bladder we then placed her in full flank position with a lateral approach to the right kidney. The abdomen was prepped and draped in usual sterile fashion went into the abdomen with a camera trocar right arm trocar left arm trocar and for trocar and then placed an air seal port. Then started off by dissecting by reflecting the colon off the kidney by incising the white line of [place] reflecting this all the way off the kidney and then working down near the hilum reflected the duodenum off the kidney sharply and then at the end of [place] the inferior vena cava and the renal vein and then marched my way down until I got underneath the kidney underneath the ureter elevating the gonadal we then used a fourth arm to retract the kidney superiorly and we worked our way underneath the kidney came across the canal with clips and then got to the hilum on dissecting at the hilum we found that it was 2 main renal veins renal artery between it with early branching very difficult hilar dissection after we I was able to dissect out the renal arteries to put 2 clips down 1 clip up and then we took the superior renal vein with 2 clips down and one clip up and then after clipping that when we clipped the inferior renal vein we then transected both the veins and a fine transected the artery and then we elevated the kidney superiorly we then dissected the kidney off the hilum further worked our way up underneath the kidney until we got all the way up to the upper pole and then we released the kidney out the lateral wall dissecting inferiorly and then came across the inferior aspect the kidney the tail with clips coming across the ureter and the gonadal veins inferiorly. Then and the robot was undocked and the Endo Catch bag was introduced through the extraction site the fourth arm site the kidney was put as inside the bag we sent as a frozen came back positive with renal cell carcinoma. The family was made aware of these findings. I then closed the extraction site with a running 0 Vicryl is a very difficult closure since the patient was quite heavy and I was very deep and a small incision and then we looked back into the camera trocar we noticed that a piece of the apical fat was pulled up into the closure so I decided to take down the closure again took down again and then this time we closed the extraction site with interrupted fashion interrupted stitches try to make sure that we only took the fascia and nothing else and after we were done closing we looked back inside and sure enough a piece of serosa of the large colon had pulled up into the closure I use a suction drafter commercial to inspected and just by touching it just barely it pulled off so was the a tiny grab a tiny bit of serosal from the large colon have been grabbed and pulled into the closure and immediately came off just barely touching it with the suction drafter commercial. I then inspected the site where the serosal injury was identified we irrigated inspected there was no succus no leakage no bowel contents came out from the the site it was way down deep in the pelvis would be impossible to place stitches here decided not to call in general surgery I think since it only look like a small serosal tear I do not think it be necessary to do an expiration and any sort of work on the serosal tear in the colon so I decided to leave it alone let the family well aware of the finding about the serosal tear in the colon let her know I will keep her on a clear liquid diet prior longer than expected because of this want to monitor closely we then closed all the sites the other sites with Yan Mccord stitch we closed the air seal port covered stent stitch we emptied out all the air out of the mid and the peritoneum and then we closed all the incisions with subcuticular stitches patient's anesthetic was reversed and she was taken back to PACU in good condition estimated blood loss about 250cc and we copiously irrigated out the abdomen. Currently the patient is undergoing closure of the incisions and being reversed from anesthesia. Surgeon: Zach Alanis Type of Anesthesia: General Drains: rodgers Admit VTE Documentation VTE Present on Admission: No VTE Mechan Device Prophylaxis: SCD's
[2021-11-07] MEDS: 0.9% Normal Saline 1,000 ML 75 ML IV (18:14)
[2021-11-07] MEDS: Morphine 2 MG/ML Syringe IV (18:55)
[2021-11-07] MEDS: 0.9% Saline Lock 10 ML Syringe IV (18:56)
[2021-11-07] MEDS: Acetaminophen 500 MG Tablet PO (21:22)
[2021-11-07] MEDS: Atorvastatin Calcium 10 MG Tablet PO (21:23)
[2021-11-07] MEDS: oxyCODONE 5 MG Tablet PO (21:23)
[2021-11-07] MEDS: Docusate Sodium 100 MG Capsule PO (21:23)
[2021-11-08] VITALS (7 sets, daily range): BP systolic 107–121; BP diastolic 63–67; PULSE 85–100; RESP 16–18; TEMP 36.6–36.8; O2SAT 91–98
[2021-11-08] MEDS: Acetaminophen 500 MG Tablet PO ×4 (01:38→20:47)
[2021-11-08] MEDS: 0.9% Normal Saline 1,000 ML 75 ML IV (05:48)
[2021-11-08 07:17] LABS: Hemoglobin 13.6 g/dL (12.0-15.0); Mean Corp Hgb Conc 33.2 g/dL (32-36); Mean Corpuscular Hgb 32.2 pg (27.0-32.0); Mean Corpuscular Volume 97.2 fL (81-99); Mean Platelet Vol. 11.6 fl (6.2-12.0); Platelet Count 198 K/mm3 (150-450); RBC Distribution Width CV 12.7 % (11.6-14.6); RBC Distribution Width SD 45.3 fl (35.1-43.9); Red Blood Count 4.22 M/mm3 (4.2-5.4); White Blood Count 14.2 K/mm3 (4.4-11.0)
[2021-11-08 07:31] LABS: Anion Gap 6 (5-15); BUN 12 mg/dL (7-18); BUN/Creat Ratio 11.8 RATIO (10-20); Calcium,Total 9.6 mg/dL (8.5-10.1); Chloride 111 mmol/L (98-107); Creatinine, Serum 1.02 mg/dL (0.55-1.02); EST Glomerular Filtration Rate 61 mL/min (>60); Est Glom Filt Rate - Afr Amer 74 mL/min (>60); Estimated Creatinine Clearance 50.34 ml/min; Glucose 130 mg/dL (74-106); Potassium 4.3 mmol/L (3.5-5.1); Sodium Level 140 mmol/L (136-145)
[2021-11-08] MEDS: Loratadine 10 MG Tablet PO (09:05)
[2021-11-08] MEDS: Docusate Sodium 100 MG Capsule PO ×2 (09:05→20:26)
--- NOTE | 2021-11-08 09:43 | PCM.PN.GU ---
Subjective Subjective 51-year-old female status post right radical nephrectomy for renal cell carcinoma frozen section was positive after removing the kidney was kidney cancer suspected by imaging. She is doing well no severe abdominal pain White blood count is normal hematocrit and hemoglobin creatinine expected range. We can start advancing to regular diet DC Archer Hep-Lock IV fluids. Objective Data Objective Data Vital Signs: Vital Signs Temp Pulse Resp BP Pulse Ox O2 Del Method O2 Flow Rate 98.0 F 85 18 121/65 H 98 Nasal Cannula 2 11/08/21 09:02 11/08/21 09:02 11/08/21 09:02 11/08/21 09:02 11/08/21 09:02 11/08/21 09:36 11/08/21 09:36 Oxygen Flow Rate (L/min) 2 Oxygen Delivery Method Nasal Cannula Weight: 100 kg Body Mass Index (BMI) 41.6 Intake & Output: Intake and Output for Last 24 Hours 11/06/21 11/07/21 11/08/21 23:59 23:59 23:59 Intake Total 1110 / 1310 1167.5 / 1167.5 Output Total 355 / 755 725 / 725 Balance 755 / 555 442.5 / 442.5 Lab / Micro Data Result Diagrams: 11/08/21 06:37 11/08/21 06:37 Labs: Laboratory Results - last 24 hr 11/07/21 10:45: Urine Test Negative 11/08/21 06:37: WBC 14.2 H, RBC 4.22, Hgb 13.6, Hct 41.0, MCV 97.2, MCH 32.2 H, MCHC 33.2, RDW Std Deviation 45.3 H, RDW Coeff of [place] 12.7, Plt Count 198, MPV 11.6 11/08/21 06:37: Sodium 140, Potassium 4.3, Chloride 111 H, Carbon Dioxide 23.0, Anion Gap 6, BUN 12, Creatinine 1.02, Estim Creat Clear Calc 50.34, Est GFR (MDRD) Af Amer 74, Est GFR (MDRD) Non-Af 61, BUN/Creatinine Ratio 11.8, Glucose 130 H, Calcium 9.6
--- NOTE | 2021-11-08 12:03 | CASEMGMT ---
BHARAT STEPHENS assessment: Face to Face with patient for initial transition planning/care coordination assessment. BHARAT STEPHENS introduced self and role at [facility], pt voices understanding and consents to assessment. Pt is lying in bed in no distress on 2L nc. Pt is A/Ox4 and answers all questions appropriately. Pt's sister is at bedside during assessment.? Care providers, pharmacy,?and demographics verified. ? Presentation: scheduled surgery with Annabelle for renal mass Admitting dx: Lap robotic right radical nephrectomy PCP: [facility] Specialists: Annabelle, uro; [facility] Preferred Pharmacy: [facility] Insurance: [place] Prescription Benefit:?[place] Living Will/HPOA: Pt states has LW/HPOA and were provided to [facility] on admission. Pt states her sister, Lilian Dubon, is HPOA. LNOK: Lilian Dubon, sister/HPOA; Pa Dubon, brother Living Arrangements: Pt lives alone in 1 story home and states no concerns at home. Pt states is independent with ADL's. Pt states her sister will be staying with her for the next week. Transportation: Pt drives self and states no transportation concerns. DME/HHC: Pt has no current DME or need for any further DME. Pt states no hx of HHC or SNF in past. Pt states no concerns with going home at time of discharge. 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 Pt states does not smoke cigarettes or drink ETOH. Pt voices no further concerns/needs. CM to follow for any further discharge planning/needs. Advised pt to ask for CM if any further questions/concerns/needs arise, voices understanding. Pt Goal: Home Plan[place] BHARAT STEPHENS
[2021-11-08] MEDS: oxyCODONE 5 MG Tablet PO (14:48)
[2021-11-08] MEDS: Atorvastatin Calcium 10 MG Tablet PO (20:26)
[2021-11-09] MEDS: Acetaminophen 500 MG Tablet PO ×3 (03:42→20:05)
[2021-11-09 03:46] VITALS: BP 139/76; PULSE 94; RESP 16; TEMP 36.8; O2SAT 94
[2021-11-09 08:02] VITALS: O2SAT 93
[2021-11-09 08:35] VITALS: BP 134/80; PULSE 86; RESP 16; TEMP 36.8; O2SAT 97
[2021-11-09] MEDS: Loratadine 10 MG Tablet PO (08:37)
[2021-11-09] MEDS: Docusate Sodium 100 MG Capsule PO ×2 (08:37→19:56)
--- NOTE | 2021-11-09 10:12 | PCM.PN.GU ---
Subjective Subjective 51-year-old female with status post right nephrectomy for renal cell carcinoma doing well no flatus or bowel movements yet we will do a suppository today fluids hep-locked and Archer catheter is out anticipate discharge tomorrow. Objective Data Objective Data Vital Signs: Vital Signs Temp Pulse Resp BP Pulse Ox O2 Del Method O2 Flow Rate 98.2 F 86 16 134/80 H 97 Room Air 2 11/09/21 08:35 11/09/21 08:35 11/09/21 08:35 11/09/21 08:35 11/09/21 08:35 11/09/21 08:35 11/08/21 09:36 Oxygen Flow Rate (L/min) 2 Oxygen Delivery Method Room Air Weight: 100 kg Body Mass Index (BMI) 41.6 Intake & Output: Intake and Output for Last 24 Hours 11/07/21 11/08/21 11/09/21 23:59 23:59 23:59 Intake Total 1110 / 1310 2448.75 / 2448.75 Output Total 355 / 755 1525 / 1525 Balance 755 / 555 923.75 / 923.75 Lab / Micro Data Result Diagrams: 11/08/21 06:37 11/08/21 06:37
[2021-11-09] MEDS: Bisacodyl 10 MG Suppository RC (11:31)
[2021-11-09 14:30] VITALS: BP 136/77; PULSE 94; RESP 18; TEMP 36.6; O2SAT 99
[2021-11-09] MEDS: Atorvastatin Calcium 10 MG Tablet PO ×2 (19:56)
[2021-11-09 20:30] VITALS: BP 122/74; PULSE 88; RESP 18; TEMP 36.7; O2SAT 95
[2021-11-10] MEDS: Acetaminophen 500 MG Tablet PO ×2 (05:56→11:30)
[2021-11-10 06:00] VITALS: BP 137/77; PULSE 85; RESP 18; TEMP 36.4; O2SAT 96
[2021-11-10 06:45] VITALS: O2SAT 95
--- NOTE | 2021-11-10 07:51 | DS.PCM_ITS ---
Providers Date of Admission: 11/07/21 Primary Care Physician: Dr. Eileen Wayne MD Reason For Visit: LAP ROBOTIC RT RADICAL NEPHRECTOMY Diagnosis Discharge Diagnosis (1) Right renal mass: Status: Acute Code(s): N28.89 - Other specified disorders of kidney and ureter Plan: Plan to proceed with a right radical nephrectomy. (2) Renal cell carcinoma: Status: Acute Code(s): C64.9 - Malignant neoplasm of unspecified kidney, except renal pelvis Medications at Discharge Home Medications arginine (L-arginine) 500 mg capsule 500 mg PO DAILY 10/23/21 cholecalciferol (vitamin D3) 25 mcg (1,000 unit) capsule 50 mcg PO DAILY 10/23/21 loratadine 10 mg tablet (Claritin) 10 mg PO DAILY 10/23/21 lutein 10 mg tablet 10 mg PO DAILY 10/23/21 multivitamin with minerals-folic acid 120 mcg chewable tablet (Centrum Adult 50 Plus Fresh-Fruity) 1 tab PO DAILY 10/23/21 norethindrone (contraceptive) 0.35 mg tablet 0.35 ea PO DAILY CONTROL 10/23/21 omega 1-nad-wha-fish oil 60 mg-90 mg-500 mg capsule (Fish Oil) 3 cap PO DAILY 10/23/21 rosuvastatin 5 mg tablet 5 mg PO DAILY CHOLESTEROL 10/23/21 zinc sulfate 50 mg zinc (220 mg) tablet 50 mg PO DAILY 10/23/21 vitamin B complex 1 cap PO DAILY 11/04/21 docusate sodium 100 mg capsule (Colace) 100 mg PO BID #20 caps 11/07/21 oxycodone-acetaminophen 5 mg-325 mg tablet 1 tab PO Q6H PRN pain 7 days #14 tabs 11/07/21 Hospital Course Summary of Care Provided Hospital Course: normla post op course, adv reg diet, discharged home morning of POST day #3 Physical Exam Const alert and oriented x3 General Appearance: cooperative HEENT normocephalic and head/scalp atraumatic Eyes PERRL and EOMs intact bilaterally Neck supple, no JVD and no carotid bruits Resp normal respiratory effort, normal air movement and clear to auscultation bila terally Cardio regular rate and no murmurs GI normal to inspection, nondistended, normoactive bowel sounds and soft to palpation Extremity normal capillary refill General Extremity: no tenderness to palpation of joints or extremities; Negative for edema Skin no rashes or lesions noted and no wounds General Skin Exam: no breakdown Neuro CN's II-XII intact bilaterally Psych affect normal Appearance: appropriate Weight / BMI Weight Weight: 100 kg Body Mass Index (BMI) 41.6 ABG / Lab / Microbiology Data Result Diagrams: 11/08/21 06:37 11/08/21 06:37 D/C Instructions Discharge Diet: No restrictions, Light diet - advance as tolerated and Soft diet Return to work on: 12/05/21 May shower in (days): 1 Call your doctor if you observe: Fever of 101 or Higher and Uncontrolled pain Cleanse incision/area with: Keep Dressing Clean & Dry Please Follow Up With: Zach Alanis MD Meaningful Use Info Meaningful Use Diagnoses (Choose all that apply): None applicable Discharge Plan Admission Admit Date/Time: 11/07/21 13:00 Primary Reason for Your Visit: Right radical nephrectomy Attending Provider: Zach Alanis Primary Care Provider: Eileen Wayne Discharge Orders/Prescriptions Prescriptions: New docusate sodium [Colace] 100 mg capsule 100 mg PO BID Qty: 20 0RF oxycodone-acetaminophen 5-325 mg tablet 1 tab PO Q6H PRN (Reason: pain) 7 Days Qty: 14 0RF Continued rosuvastatin 5 mg tablet 5 mg PO DAILY norethindrone (contraceptive) 0.35 mg tablet 0.35 ea PO DAILY Label Comments: TAKE 1 TABLET BY MOUTH ONCE DAILY Centrum Adult 50 Fresh-Fruity 120 mcg tablet,chewable 1 tab PO DAILY zinc sulfate 50 mg zinc (220 mg) tablet 50 mg PO DAILY loratadine [Claritin] 10 mg tablet 10 mg PO DAILY cholecalciferol (vitamin D3) 25 mcg (1,000 unit) capsule 50 mcg PO DAILY arginine (L-arginine) 500 mg capsule 500 mg PO DAILY lutein 10 mg tablet 10 mg PO DAILY Rx Instructions: give with meal/snack omega 8-kty-eig-fish oil [Fish Oil] 60-90-500 mg capsule 3 cap PO DAILY vitamin B complex Capsule 1 cap PO DAILY Referrals / Follow Up: Eileen Wayne MD [Primary Care Provider] - Zach Alanis MD [Med Staff - Active Staff] - Disposition Discharge Orders: Discharge Patient (Routine); Ordered 11/10/21 Ordered By: Dr. Zach Alanis
[2021-11-10] MEDS: Loratadine 10 MG Tablet PO (09:24)
[2021-11-10] MEDS: Docusate Sodium 100 MG Capsule PO (09:24)
[2021-11-10 09:36] VITALS: BP 152/82; PULSE 100; RESP 16; TEMP 36.6; O2SAT 97
--- NOTE | 2021-11-10 12:15 | PHA.DC.MR ---
Pharmacy Service has performed discharge medication reconciliation for this patient. The patient's discharge medication list was reviewed for discrepancies and discrepancies were resolved. Medication education papers prepared, patient already discharged when this [facility] attempted to camp counselor. Home Medications arginine (L-arginine) 500 mg capsule 500 mg PO DAILY 10/23/21 cholecalciferol (vitamin D3) 25 mcg (1,000 unit) capsule 50 mcg PO DAILY 10/23/21 loratadine 10 mg tablet (Claritin) 10 mg PO DAILY 10/23/21 lutein 10 mg tablet 10 mg PO DAILY 10/23/21 multivitamin with minerals-folic acid 120 mcg chewable tablet (Centrum Adult 50 Plus Fresh-Fruity) 1 tab PO DAILY 10/23/21 norethindrone (contraceptive) 0.35 mg tablet 0.35 ea PO DAILY CONTROL 10/23/21 omega 7-wxe-rfg-fish oil 60 mg-90 mg-500 mg capsule (Fish Oil) 3 cap PO DAILY 10/23/21 rosuvastatin 5 mg tablet 5 mg PO DAILY CHOLESTEROL 10/23/21 zinc sulfate 50 mg zinc (220 mg) tablet 50 mg PO DAILY 10/23/21 vitamin B complex 1 cap PO DAILY 11/04/21 docusate sodium 100 mg capsule (Colace) 100 mg PO BID #20 caps 11/07/21 oxycodone-acetaminophen 5 mg-325 mg tablet 1 tab PO Q6H PRN pain 7 days #14 tabs 11/07/21
== END 2021-11-10 12:10 | disposition home or self-care (01) | DRG 657 ==
LOC: SDC 11-11 08:04
PROVIDERS: Anesthesiology; Admitting Provider Urology; PCP Internal Medicine; Referring Provider Urology; Visit Provider Urology
PROC: 0TT04ZZ Resection of Right Kidney, Percutaneous Endoscopic Approach (ICD-10-PCS; CPT 50546; principal; 2021-11-07 12:40)
DX: C64.1 Malignant neoplasm of right kidney, except renal pelvis (principal); Z68.41 Body mass index [BMI] 40.0-44.9, adult; E66.01 Morbid (severe) obesity due to excess calories; E55.9 Vitamin D deficiency, unspecified; E78.2 Mixed hyperlipidemia; Z90.49 Acquired absence of other specified parts of digestive tract; Z79.899 Other long term (current) drug therapy; Z80.0 Family history of malignant neoplasm of digestive organs
CPT/HCPCS: 36415; 80048; 81025; 85027; 88307; 88331; 97802; J7030; J7120; A4216; J2405

== ENCOUNTER 2021-12-01 10:00 | Outpatient (RCR) | payer BC, SELFPAY | END 2021-12-10 23:59 | LOC: NS 10:00 | PROVIDERS: PCP Internal Medicine; Referring Provider Urology; Visit Provider Urology | DX: Z71.3 Dietary counseling and surveillance (principal); E66.01 Morbid (severe) obesity due to excess calories; Z68.41 Body mass index [BMI] 40.0-44.9, adult; C64.9 Malignant neoplasm of unspecified kidney, except renal pelvis; K76.0 Fatty (change of) liver, not elsewhere classified; E21.3 Hyperparathyroidism, unspecified; E83.52 Hypercalcemia | CPT/HCPCS: 97802; 97803 ==

== ENCOUNTER → 2021-12-06 | Outpatient (CLI) | payer BC, SELFPAY ==
[2021-12-06 11:44] LABS: AST(SGOT) 20 U/L (15-37); Alanine Aminotransfer ALT/SGPT 48 U/L (13-56); Albumin, Serum 3.9 g/dL (3.2-5.0); Alkaline Phosphatase 142 U/L (45-117); Bilirubin, Direct 0.27 mg/dL (0.00-0.30); Calcium,Total 11.4 mg/dL (8.5-10.1); Globulin 3.4 g/dL (2.2-4.2); Magnesium 2.7 mg/dL (1.6-2.6); Phosphorus 2.6 mg/dL (2.5-4.9); Protein, Total 7.3 g/dL (6.4-8.2)
[2021-12-08 09:31] LABS: PTHIN 99.2 pg/mL (18.4-80.1)
== END | disposition home or self-care (01) ==
PROVIDERS: PCP Internal Medicine; Referring Provider Internal Medicine Endocrinology, Diabetes & Metabolism; Visit Provider Internal Medicine Endocrinology, Diabetes & Metabolism
DX: E21.3 Hyperparathyroidism, unspecified (principal); E83.52 Hypercalcemia; E55.9 Vitamin D deficiency, unspecified
CPT/HCPCS: 36415; 80076; 82306; 82310; 82330; 83735; 83970; 84100

== ENCOUNTER → 2022-01-16 | Outpatient (CLI) | payer BC, SELFPAY ==
[2022-01-16 13:35] LABS: ALB/GLOB Ratio 1.2 RATIO (0.9-2.4); AST(SGOT) 22 U/L (15-37); Alanine Aminotransfer ALT/SGPT 40 U/L (13-56); Alkaline Phosphatase 130 U/L (45-117); Anion Gap 9 (5-15); BUN 15 mg/dL (7-18); BUN/Creat Ratio 16.4 RATIO (10-20); Calcium,Total 11.4 mg/dL (8.5-10.1); Chloride 108 mmol/L (98-107); Cholesterol 124 mg/dL (200); Creatinine, Serum 0.92 mg/dL (0.55-1.02); EST Glomerular Filtration Rate 69 mL/min (>60); Est Glom Filt Rate - Afr Amer 84 mL/min (>60); GGTP 23 U/L (5-55); Globulin 3.4 g/dL (2.2-4.2); Glucose 81 mg/dL (74-106); High Density Lipoprotein 35 mg/dL; Potassium 3.8 mmol/L (3.5-5.1); Protein, Total 7.4 g/dL (6.4-8.2); Sodium Level 143 mmol/L (136-145); Triglycerides 91 mg/dL; Very Low Density Lipoprotein 18 mg/dL (5-40)
[2022-01-16 15:08] LABS: Microalbumin,Random Urine 33.4 mg/L (NO RANGE EST.); Microalbumin:Creatinine Ratio 69.7 mg/g CRE (<30 mg/g CRE)
== END | disposition home or self-care (01) ==
LOC: LAB 12:30
PROVIDERS: PCP Internal Medicine; Referring Provider Internal Medicine; Visit Provider Internal Medicine
DX: E78.00 Pure hypercholesterolemia, unspecified (principal); C64.9 Malignant neoplasm of unspecified kidney, except renal pelvis
CPT/HCPCS: 36415; 80053; 80061; 82043; 82570; 82977

== ENCOUNTER 2022-01-27 09:58 | Outpatient (RCR) | payer BC, SELFPAY | END 2022-02-09 23:59 | LOC: NS 09:58 | PROVIDERS: PCP Internal Medicine; Referring Provider Urology; Visit Provider Urology | DX: Z71.3 Dietary counseling and surveillance (principal); E66.01 Morbid (severe) obesity due to excess calories; Z68.41 Body mass index [BMI] 40.0-44.9, adult; C64.9 Malignant neoplasm of unspecified kidney, except renal pelvis; K76.0 Fatty (change of) liver, not elsewhere classified; E21.3 Hyperparathyroidism, unspecified; E83.52 Hypercalcemia | CPT/HCPCS: 97803 ==

== ENCOUNTER → 2022-02-12 | Outpatient (CLI) | payer BC, SELFPAY ==
--- NOTE | 2022-02-12 13:00 | CT_ITS ---
STUDY: CT CHEST, ABDOMEN T PELVIS WITHOUT CONTRAST REASON FOR EXAM: Female, 51 years old. RIGHT KIDNEY CANCER S/P NEPHRECTOMY RADIATION DOSAGE (If Supplied By Facility): CTDIvol = ( 19.51 ) mGy, DLP = ( 1593.94 ) mGycm TECHNIQUE: Transaxial imaging was performed without the administration of intravenous contrast material. Multiplanar coronal and sagittal images were reformatted. Individualized dose optimization techniques were used for this CT. COMPARISON: Comparison is made with prior CT scan of the pelvis dated 10/10/2001. FINDINGS: CHEST Small bilateral benign appearing axillary lymph nodes. The lungs are normal. There is no demonstrated pleural abnormality. Normal heart and pericardium. There are multiple small lymph nodes within the mediastinum, which are normal in size and morphology most compatible with reactive lymph hyperplasia. Normal hilar regions. Normal unenhanced pulmonary arteries. Normal aorta arch and descending thoracic aorta. There are multi-level degenerative changes of the thoracic spine. Increased kyphosis. There is no demonstrated abnormality of the visualized upper abdomen. ABDOMEN Normal liver. The gallbladder is contracted. Normal spleen. Normal pancreas. Normal bilateral adrenal glands. The patient is status post right nephrectomy. Normal left kidney. Normal visualized stomach. Normal small intestine. Normal colon. There are surgical clips in the region of the appendix consistent with a prior appendectomy. Normal abdominal aorta. Normal inferior vena cava. Normal retroperitoneum. Normal abdominal wall. Normal osseous structures. PELVIS Normal urinary bladder. There is no pelvic fluid. There is no pelvic lymphadenopathy or mass lesion. Normal visualized pelvic arteries. CT/CT Chest, Abd, Pelvis WO Cont IMPRESSION: Status post right nephrectomy. No acute abnormality is seen. Electronically Signed: Jordon Real MD at 14:41 EDT ,
== END | disposition home or self-care (01) ==
LOC: CT 12:49
PROVIDERS: PCP Internal Medicine; Referring Provider Internal Medicine Hematology & Oncology; Visit Provider Internal Medicine Hematology & Oncology
DX: C64.1 Malignant neoplasm of right kidney, except renal pelvis (principal); Z90.5 Acquired absence of kidney
CPT/HCPCS: 71250; 74176

== ENCOUNTER → 2022-02-13 | Outpatient (CLI) | payer BC, SELFPAY ==
[2022-02-20 15:20] LABS: HPV APTIMA, High Risk Negative (Negative)
== END | disposition home or self-care (01) ==
LOC: LABSPEC 10:34
PROVIDERS: PCP Internal Medicine; Visit Provider Student in an Organized Health Care Education/Training Program
DX: Z12.4 Encounter for screening for malignant neoplasm of cervix (principal)
CPT/HCPCS: 87624; 88175; G0145

== ENCOUNTER → 2022-02-16 | Outpatient (CLI) | payer BC, SELFPAY ==
--- NOTE | 2022-02-16 07:28 | BI_ITS ---
MAMMOGRAPHY - BILATERAL SCREENING REASON FOR EXAM: Female, 51 years old. Routine annual screening examination. PERTINENT HISTORY: Aunt with breast cancer. TECHNIQUE: Digital bilateral breast bryan (3D mammographic acquisition) in the CC and MLO projections. 2-D mediolateral oblique (MLO) and craniocaudad (CC) views of both breasts were obtained. CAD: Full Field Digital Mammography with Computer Added Detection was performed. COMPARISON: Comparison is made with prior study dated 02/12/2021 and 01/10/2020. FINDINGS: Breast Composition: The breasts are heterogeneously dense, which may obscure small masses. There are no dominant masses or suspicious calcifications. No other significant abnormalities are identified. There has been no significant change since the prior study. BI/SCRN MAMM (CAD)W/BRYAN BILAT IMPRESSION: Stable bilateral screening mammogram. Yearly follow-up mammogram recommended. (A) ASSESSMENT CATEGORY: BIRADS Category 1: Negative. A letter regarding these results will be sent to the patient by the facility within 30 days. Approximately 10% of breast cancers are not detected by mammography. A normal mammogram should not delay biopsy of a clinically suspicious abnormality. [id number] Electronically Signed: Jordon Real MD at 8:11 EST ,
== END | disposition home or self-care (01) ==
LOC: OPBI 07:24
PROVIDERS: PCP Internal Medicine; Visit Provider Student in an Organized Health Care Education/Training Program
DX: Z12.31 Encounter for screening mammogram for malignant neoplasm of breast (principal)
CPT/HCPCS: 77063; 77067

== ENCOUNTER → 2022-02-28 | Outpatient (CLI) | payer BC, SELFPAY ==
[2022-02-28 11:12] LABS: Microalbumin,Random Urine 23.4 mg/L (NO RANGE EST.); Microalbumin:Creatinine Ratio 12.9 mg/g CRE (<30 mg/g CRE)
[2022-02-28 11:24] LABS: ALB/GLOB Ratio 1.1 RATIO (0.9-2.4); AST(SGOT) 19 U/L (15-37); Alanine Aminotransfer ALT/SGPT 30 U/L (13-56); Albumin, Serum 3.9 g/dL (3.2-5.0); Alkaline Phosphatase 147 U/L (45-117); Anion Gap 4 (5-15); BUN 13 mg/dL (7-18); BUN/Creat Ratio 12.7 RATIO (10-20); Calcium,Total 11.4 mg/dL (8.5-10.1); Chloride 111 mmol/L (98-107); Cholesterol 119 mg/dL (200); Creatinine, Serum 1.02 mg/dL (0.55-1.02); EST Glomerular Filtration Rate 61 mL/min (>60); Est Glom Filt Rate - Afr Amer 74 mL/min (>60); Globulin 3.4 g/dL (2.2-4.2); Glucose 92 mg/dL (74-106); High Density Lipoprotein 36 mg/dL; Protein, Total 7.3 g/dL (6.4-8.2); Sodium Level 142 mmol/L (136-145); Triglycerides 82 mg/dL; Very Low Density Lipoprotein 16 mg/dL (5-40)
[2022-03-02 10:00] LABS: Vitamin D,25 Hydroxy 57.4 ng/mL
[2022-03-02 16:55] LABS: Bilirubin, Direct 0.35 mg/dL (0.00-0.30); GGTP 16 U/L (5-55)
== END | disposition home or self-care (01) ==
LOC: LAB 10:14
PROVIDERS: PCP Internal Medicine; Referring Provider Internal Medicine; Visit Provider Internal Medicine
DX: R80.9 Proteinuria, unspecified (principal); E78.00 Pure hypercholesterolemia, unspecified; E55.9 Vitamin D deficiency, unspecified
CPT/HCPCS: 36415; 80053; 80061; 82043; 82248; 82306; 82570; 82977

== ENCOUNTER → 2022-03-23 | Outpatient (CLI) | payer BC, SELFPAY ==
[2022-03-23 10:56] LABS: PTHIN 125.5 pg/mL (18.4-80.1)
[2022-03-23 10:59] LABS: Vitamin D,25 Hydroxy 41.5 ng/mL
[2022-03-23 12:37] LABS: Calcium,Total 11.4 mg/dL (8.5-10.1)
== END | disposition home or self-care (01) ==
LOC: LAB 09:45
PROVIDERS: PCP Internal Medicine; Referring Provider Internal Medicine Endocrinology, Diabetes & Metabolism; Visit Provider Internal Medicine Endocrinology, Diabetes & Metabolism
DX: E21.3 Hyperparathyroidism, unspecified (principal); E55.9 Vitamin D deficiency, unspecified
CPT/HCPCS: 36415; 82306; 82310; 83970

== ENCOUNTER → 2022-03-23 | Outpatient (CLI) | payer BC, SELFPAY ==
--- NOTE | 2022-03-23 09:33 | NM_ITS ---
CLINICAL: 51-year-old female with history of renal cell carcinoma. WHOLE BODY 99m Tc MDP RADIONUCLIDE BONE SCINTIGRAPHY COMPARISON: None available FINDINGS: Following the intravenous administration of 20.4 mCi of 99m Tc MDP, whole body bone images reveal: 1. Increased radiopharmaceutical concentration is defined in the fifth lumbar vertebra posteriorly on the right, the sacrum posteriorly on the left and right, the acromioclavicular compartments of both shoulders, the ninth thoracic vertebra posteriorly on the left and right, the knee articulations bilaterally. 2.. The remaining skeletal structures are scintigraphically unremarkable with a normal-appearing left renal image and urinary bladder activity identified. The right kidney is scintigraphically absent. Uptake may be apparent in the lateral cortical compartment of the bilateral visualized proximal-distal tibial diaphyses. NM/Bone Scan Whole Body IMPRESSION: 1. The increase in radiopharmaceutical concentration defined in the thoracic and lumbar spine, sacrum, the bilateral shoulders, right and left knees is consistent with degenerative arthrosis. 2. Increased tracer defined in the lateral cortical compartment of the bilateral proximal-distal tibial diaphysis may represent periostitis attributed to hypertrophic osteoarthropathy. (Oh et al, Anesth Pain Med 16: 290, 202). Plain film radiography correlation may be of benefit. 3. There is no scintigraphic evidence of diffuse axial skeletal metastatic disease. Electronically Signed: Jayden Parker, at 21:52 EST ,
== END | disposition home or self-care (01) ==
LOC: NM 09:32
PROVIDERS: PCP Internal Medicine; Visit Provider Internal Medicine
DX: C64.1 Malignant neoplasm of right kidney, except renal pelvis (principal); R74.8 Abnormal levels of other serum enzymes; R89.9 Unspecified abnormal finding in specimens from other organs, systems and tissues; E83.52 Hypercalcemia
CPT/HCPCS: 78306; A9503

== ENCOUNTER → 2022-04-18 | Outpatient (CLI) | payer BC, SELFPAY ==
[2022-04-18 12:12] LABS: ALB/GLOB Ratio 1.2 RATIO (0.9-2.4); AST(SGOT) 16 U/L (15-37); Alanine Aminotransfer ALT/SGPT 32 U/L (13-56); Albumin, Serum 4.2 g/dL (3.2-5.0); Alkaline Phosphatase 156 U/L (45-117); Anion Gap 3 (5-15); BUN 18 mg/dL (7-18); Calcium,Total 11.4 mg/dL (8.5-10.1); Chloride 107 mmol/L (98-107); Creatinine, Serum 0.95 mg/dL (0.55-1.02); EST Glomerular Filtration Rate 67 mL/min (>60); Est Glom Filt Rate - Afr Amer 81 mL/min (>60); Globulin 3.5 g/dL (2.2-4.2); Glucose 91 mg/dL (74-106); Protein, Total 7.7 g/dL (6.4-8.2); Sodium Level 140 mmol/L (136-145)
== END | disposition home or self-care (01) ==
LOC: LAB 11:25
PROVIDERS: PCP Internal Medicine; Referring Provider Internal Medicine; Visit Provider Internal Medicine
DX: R79.9 Abnormal finding of blood chemistry, unspecified (principal)
CPT/HCPCS: 36415; 80053

== ENCOUNTER 2022-04-21 07:37 | Outpatient (RCR) | payer BC, SELFPAY | END 2022-05-12 23:59 | LOC: NS 07:37 | PROVIDERS: PCP Internal Medicine; Referring Provider Urology; Visit Provider Urology | DX: Z71.3 Dietary counseling and surveillance (principal); E66.01 Morbid (severe) obesity due to excess calories; Z68.41 Body mass index [BMI] 40.0-44.9, adult; C64.9 Malignant neoplasm of unspecified kidney, except renal pelvis; K76.0 Fatty (change of) liver, not elsewhere classified; E21.3 Hyperparathyroidism, unspecified; E83.52 Hypercalcemia | CPT/HCPCS: 97803 ==

== ENCOUNTER → 2022-04-28 | Outpatient (CLI) | payer BC, SELFPAY ==
--- NOTE | 2022-04-28 16:56 | RAD_ITS ---
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 This report was created using Drim[employer] report generation technology. COMPARISON: None. FINDINGS: BONES/JOINTS: Unremarkable. No acute fracture. No subluxation. Normal alignment. Preservation of the joint space. No sclerotic or destructive changes observed. SOFT TISSUES: Unremarkable. No soft tissue swelling or gas. No radiopaque foreign body. RAD/Tibia & Fibula 2 Views IMPRESSION: Negative left tibia and fibula x-rays. Electronically Signed: Farhad Banegas MD at 23:23 EST ,
--- NOTE | 2022-04-28 17:00 | RAD_ITS ---
INDICATION: Paraneoplastic hypertrophic osteoarthropathy EXAMINATION/TECHNIQUE: X-RAY - RIGHT XR Tibia/Fibula 2 Views 2 VIEWS COMPARISON: None. FINDINGS: SOFT TISSUES: No soft tissue swelling or gas. No radiopaque foreign body. BONES/JOINTS: No acute fracture or subluxation.. Normal alignment. Preservation of the joint space.. No sclerotic or destructive changes observed. RAD/Tibia & Fibula 2 Views IMPRESSION: Negative. Electronically Signed: Shiva Winston MD at 21:50 EST ,
== END | disposition home or self-care (01) ==
LOC: RAD 16:46
PROVIDERS: PCP Internal Medicine; Visit Provider Internal Medicine
DX: M89.40 Other hypertrophic osteoarthropathy, unspecified site (principal)
CPT/HCPCS: 73590

== ENCOUNTER 2022-06-16 07:27 | Outpatient (RCR) | payer BC, SELFPAY | END 2022-07-10 23:59 | LOC: NS 07:27 | PROVIDERS: PCP Internal Medicine; Referring Provider Urology; Visit Provider Urology | DX: Z71.3 Dietary counseling and surveillance (principal); E66.01 Morbid (severe) obesity due to excess calories; Z68.41 Body mass index [BMI] 40.0-44.9, adult; C64.9 Malignant neoplasm of unspecified kidney, except renal pelvis; K76.0 Fatty (change of) liver, not elsewhere classified; E21.3 Hyperparathyroidism, unspecified; E83.52 Hypercalcemia | CPT/HCPCS: 97803 ==

== ENCOUNTER → 2022-06-16 | Outpatient (CLI) | payer BC, SELFPAY ==
--- NOTE | 2022-06-16 08:30 | RAD_ITS ---
INDICATION: NEOPLASM OF UNCERTAIN BEHAVIOR OR RIGHT KIDNEY EXAMINATION/TECHNIQUE: X-RAY - XR Chest 2 Views COMPARISON: None. FINDINGS: The lungs are clear. Tortuous and calcified thoracic aorta. The heart is not enlarged. No pleural effusion or pneumothorax. Degenerative changes of the thoracic spine. RAD/Chest PA and Lateral IMPRESSION: No acute radiographic abnormalities. Electronically Signed: Luis Ewing MD at 23:39 EST ,
[2022-06-16 08:56] LABS: Hematocrit 47.8 % (37-47); Hemoglobin 15.7 g/dL (12.0-15.0); Mean Corp Hgb Conc 32.8 g/dL (32-36); Mean Corpuscular Hgb 32.5 pg (27.0-32.0); Mean Platelet Vol. 11.4 fl (6.2-12.0); Platelet Count 225 K/mm3 (150-450); RBC Distribution Width CV 12.7 % (11.6-14.6); RBC Distribution Width SD 46.3 fl (35.1-43.9); Red Blood Count 4.83 M/mm3 (4.2-5.4); White Blood Count 5.3 K/mm3 (4.4-11.0)
[2022-06-16 09:22] LABS: ALB/GLOB Ratio 1.3 RATIO (0.9-2.4); AST(SGOT) 20 U/L (15-37); Alanine Aminotransfer ALT/SGPT 34 U/L (13-56); Albumin, Serum 4.2 g/dL (3.2-5.0); Alkaline Phosphatase 157 U/L (45-117); Anion Gap 6 (5-15); BUN 18 mg/dL (7-18); BUN/Creat Ratio 18.6 RATIO (10-20); Calcium,Total 12.1 mg/dL (8.5-10.1); Chloride 107 mmol/L (98-107); Creatinine, Serum 0.97 mg/dL (0.55-1.02); EST Glomerular Filtration Rate 65 mL/min (>60); Est Glom Filt Rate - Afr Amer 79 mL/min (>60); Globulin 3.3 g/dL (2.2-4.2); Glucose 106 mg/dL (74-106); Protein, Total 7.5 g/dL (6.4-8.2); Sodium Level 141 mmol/L (136-145)
== END | disposition home or self-care (01) ==
LOC: RAD 07:31
PROVIDERS: PCP Internal Medicine; Visit Provider Urology
DX: D41.01 Neoplasm of uncertain behavior of right kidney (principal)
CPT/HCPCS: 36415; 71046; 80053; 85027

== ENCOUNTER → 2022-07-11 | Outpatient (CLI) | payer BC, SELFPAY ==
[2022-07-11 11:22] LABS: ALB/GLOB Ratio 1.2 RATIO (0.9-2.4); AST(SGOT) 20 U/L (15-37); Alanine Aminotransfer ALT/SGPT 35 U/L (13-56); Albumin, Serum 4.1 g/dL (3.2-5.0); Alkaline Phosphatase 156 U/L (45-117); Anion Gap 4 (5-15); BUN 19 mg/dL (7-18); BUN/Creat Ratio 21.7 RATIO (10-20); Calcium,Total 11.9 mg/dL (8.5-10.1); Chloride 108 mmol/L (98-107); Creatinine, Serum 0.88 mg/dL (0.55-1.02); EST Glomerular Filtration Rate 73 mL/min (>60); Est Glom Filt Rate - Afr Amer 88 mL/min (>60); Globulin 3.5 g/dL (2.2-4.2); Glucose 92 mg/dL (74-106); Potassium 4.6 mmol/L (3.5-5.1); Protein, Total 7.6 g/dL (6.4-8.2); Sodium Level 139 mmol/L (136-145)
[2022-07-13 08:30] LABS: PTHIN 122.5 pg/mL (18.4-80.1)
[2022-07-13 08:31] LABS: Vitamin D,25 Hydroxy 93.5 ng/mL
== END | disposition home or self-care (01) ==
LOC: LAB 10:12
PROVIDERS: PCP Internal Medicine; Visit Provider Internal Medicine Endocrinology, Diabetes & Metabolism
DX: E55.9 Vitamin D deficiency, unspecified (principal); E21.3 Hyperparathyroidism, unspecified
CPT/HCPCS: 36415; 80053; 82306; 83970

== ENCOUNTER → 2022-07-27 | Outpatient (CLI) | payer BC, SELFPAY ==
--- NOTE | 2022-07-27 18:17 | US_ITS ---
INDICATION: localize hyperparathyroidism EXAMINATION: Ultrasound US Thyroid (eg thyroid, parathyroid, parotid) TECHNIQUE: Celestin scale and color doppler imaging was performed of the thyroid gland. TI-RADS criteria was utilized. COMPARISON: None. FINDINGS: RIGHT THYROID LOBE: 4.7 x 1.3 x 1.1 cm with a volume of 3.4 mL. Heterogeneous echotexture with normal vascularity. [6 mm nodule in the mid right lobe which is solid, hypoechoic, wider than tall with smooth margins and no echogenic foci with no follow-up recommended. 8 mm oval homogeneous hypoechoic nodular lesion which appears to be posterior to the right lobe. LEFT THYROID LOBE: 3.7 x 1.1 x 1.2 cm with a volume of 2.4 mL. Heterogeneous echotexture with normal vascularity. [1.0 cm nodule which is solid, hypoechoic, wider than tall with smooth margins and no echogenic foci. ISTHMUS: 4 mm in AP diameter. No thyroid nodules are present. US/Thyroid IMPRESSION: 1. 1.0 cm solid nodule in the left lobe as described above. Per TI-RADS criteria, recommend follow-up ultrasound in one year. 2. 8 mm oval hypoechoic nodule which appears to be posterior to the right lobe of the thyroid possibly representing a parathyroid gland or parathyroid lesion. Electronically Signed: Shiva Hammond DO at 5:27 EDT ,
== END | disposition home or self-care (01) ==
LOC: US 18:17
PROVIDERS: PCP Internal Medicine; Visit Provider Internal Medicine Endocrinology, Diabetes & Metabolism
DX: E83.52 Hypercalcemia (principal); E21.3 Hyperparathyroidism, unspecified
CPT/HCPCS: 76536

== ENCOUNTER → 2022-08-07 | Outpatient (CLI) | payer BC, SELFPAY ==
--- NOTE | 2022-08-07 09:43 | NM_ITS ---
CLINICAL: 51-year-old female with history of hypercalcemia, clinical hyperparathyroidism. 99m Tc SESTAMIBI DUAL PHASE PARATHYROID SCINTIGRAPHY COMPARISON: Thyroid ultrasound report 07/27/2022 FINDINGS: Following the intravenous administration of 26.0 mCi of 99m Tc sestamibi, image acquisitions of the anterior neck at 15 minutes and approximately 3.0 hours post radiopharmaceutical provision reveal: 1. Immediate static blood pool acquisitions demonstrate uniform distribution of the radiopharmaceutical apparent in the left-right thyroid colloid. A focus of increased uptake is noted inferior and lateral to the inferior pole of the left bed. 2. Delayed images depict incomplete washout of the radiopharmaceutical from the previously defined thyroid colloid. Persistent uptake is noted in the left anterior neck, and lateral to the inferior pole of the left lobe thyroid colloid. NM/Parathyroid Scan IMPRESSION: 1. The increase in radiopharmaceutical concentration redemonstrated in the left anterior neck caudal to the inferior pole of the left thyroid bed may represent the presence of a low-grade parathyroid adenoma. 2. No other scintigraphic abnormalities are demonstrated. Electronically Signed: Jayden Parker, at 13:18 EDT ,
== END | disposition home or self-care (01) ==
PROVIDERS: PCP Internal Medicine; Referring Provider Internal Medicine Endocrinology, Diabetes & Metabolism; Visit Provider Internal Medicine Endocrinology, Diabetes & Metabolism
DX: E83.52 Hypercalcemia (principal); E21.3 Hyperparathyroidism, unspecified
CPT/HCPCS: 78070; A9500

== ENCOUNTER 2022-08-18 08:35 | Outpatient (RCR) | payer BC, SELFPAY | END 2022-09-09 23:59 | LOC: NS 08:35 | PROVIDERS: PCP Internal Medicine; Referring Provider Urology; Visit Provider Urology | DX: Z71.3 Dietary counseling and surveillance (principal); E66.01 Morbid (severe) obesity due to excess calories; Z68.41 Body mass index [BMI] 40.0-44.9, adult; C64.9 Malignant neoplasm of unspecified kidney, except renal pelvis; K76.0 Fatty (change of) liver, not elsewhere classified; E21.3 Hyperparathyroidism, unspecified; E83.52 Hypercalcemia | CPT/HCPCS: 97803 ==

== ENCOUNTER 2022-10-19 07:24 | Outpatient (RCR) | payer BC, SELFPAY | END 2022-11-09 23:59 | LOC: NS 07:24 | PROVIDERS: PCP Internal Medicine; Referring Provider Urology; Visit Provider Urology | DX: Z71.3 Dietary counseling and surveillance (principal); E66.01 Morbid (severe) obesity due to excess calories; Z68.41 Body mass index [BMI] 40.0-44.9, adult; C64.9 Malignant neoplasm of unspecified kidney, except renal pelvis; K76.0 Fatty (change of) liver, not elsewhere classified; E21.3 Hyperparathyroidism, unspecified; E83.52 Hypercalcemia | CPT/HCPCS: 97803 ==

== ENCOUNTER 2022-12-21 07:15 | Outpatient (RCR) | payer BC, SELFPAY | END 2023-01-09 23:59 | LOC: NS 07:15 | PROVIDERS: PCP Internal Medicine; Referring Provider Internal Medicine; Visit Provider Internal Medicine | DX: Z71.3 Dietary counseling and surveillance (principal); E66.01 Morbid (severe) obesity due to excess calories; Z68.41 Body mass index [BMI] 40.0-44.9, adult; C64.9 Malignant neoplasm of unspecified kidney, except renal pelvis; K76.0 Fatty (change of) liver, not elsewhere classified; E21.3 Hyperparathyroidism, unspecified; E83.52 Hypercalcemia | CPT/HCPCS: 97802 ==

== ENCOUNTER → 2022-12-21 | Outpatient (CLI) | payer BC, SELFPAY ==
[2022-12-21 07:21] LABS: Hematocrit 45.6 % (37-47); Hemoglobin 14.7 g/dL (12.0-15.0); Mean Corp Hgb Conc 32.2 g/dL (32-36); Mean Corpuscular Hgb 32.2 pg (27.0-32.0); Mean Corpuscular Volume 99.8 fL (81-99); Mean Platelet Vol. 10.2 fl (6.2-12.0); Platelet Count 232 K/mm3 (150-450); RBC Distribution Width CV 12.6 % (11.6-14.6); RBC Distribution Width SD 46.2 fl (35.1-43.9); Red Blood Count 4.57 M/mm3 (4.2-5.4); White Blood Count 7.2 K/mm3 (4.4-11.0)
[2022-12-21 07:53] LABS: ALB/GLOB Ratio 1.1 RATIO (0.9-2.4); AST(SGOT) 18 U/L (15-37); Alanine Aminotransfer ALT/SGPT 29 U/L (13-56); Albumin, Serum 3.7 g/dL (3.2-5.0); Alkaline Phosphatase 131 U/L (45-117); Anion Gap 2 (5-15); BUN 20 mg/dL (7-18); BUN/Creat Ratio 21.4 RATIO (10-20); Calcium,Total 8.8 mg/dL (8.5-10.1); Chloride 110 mmol/L (98-107); Creatinine, Serum 0.93 mg/dL (0.55-1.02); EST Glomerular Filtration Rate 68 mL/min (>60); Est Glom Filt Rate - Afr Amer 82 mL/min (>60); Globulin 3.5 g/dL (2.2-4.2); Glucose 105 mg/dL (74-106); Potassium 4.5 mmol/L (3.5-5.1); Protein, Total 7.2 g/dL (6.4-8.2); Sodium Level 141 mmol/L (136-145)
--- NOTE | 2022-12-21 08:30 | RAD_ITS ---
STUDY: X-RAY CHEST REASON FOR EXAM: Female, 52 years old. NEOPLASM OF KIDNEY -- -- 6 mo follow up from kidney ca, no current chest complaints TECHNIQUE: PA and lateral views of the chest. COMPARISON: 06/16/2022. FINDINGS: The lungs are slightly underexpanded with mild vascular crowding, otherwise clear. There is no demonstrated pleural abnormality. Normal size heart. Normal mediastinum and luis a. Normal visualized pulmonary arteries. Normal visualized aortic arch and descending thoracic aorta. There are diffuse degenerative changes of the visualized thoracic spine. There is degenerative osteoarthritis of the bilateral shoulders. There is no demonstrated abnormality of the visualized soft tissue structures of the upper abdomen. RAD/Chest PA and Lateral IMPRESSION: No acute cardiopulmonary disease. Electronically Signed: Joy Murray MD at 17:24 EDT ,
== END | disposition home or self-care (01) ==
PROVIDERS: PCP Internal Medicine; Referring Provider Registered Nurse; Visit Provider Registered Nurse
DX: C64.9 Malignant neoplasm of unspecified kidney, except renal pelvis (principal)
CPT/HCPCS: 36415; 71046; 80053; 85027

== ENCOUNTER → 2023-01-09 | Outpatient (CLI) | payer BC, SELFPAY ==
[2023-01-09 10:14] LABS: Absolute Lymphocyte Count 1.48 X10^3/uL (0.83-4.51); Absolute Neutrophil Count 3.4 X10^3/uL (2.0-7.7); Basophil# 0.03 X10^3/uL; Basophil% 0.5 % (0-1); Eosinophil# 0.21 X10^3/uL; Eosinophils% 3.8 % (0-5); Hematocrit 46.2 % (37-47); Hemoglobin 15.3 g/dL (12.0-15.0); Lymphocyte # 1.48 X10^3/ul (0.83-4.51); Lymphocyte % 26.7 % (19-41); Mean Corp Hgb Conc 33.1 g/dL (32-36); Mean Corpuscular Hgb 32.3 pg (27.0-32.0); Mean Corpuscular Volume 97.7 fL (81-99); Mean Platelet Vol. 11.3 fl (6.2-12.0); Monocyte# 0.43 X10^3/uL; Monocyte% 7.8 % (0-10); NRBC Flagged by Analyzer 0 % (0-5); Neutrophil # 3.38 X10^3/uL (2.7-7.7); Platelet Count 217 K/mm3 (150-450); RBC Distribution Width CV 12.4 % (11.6-14.6); RBC Distribution Width SD 44.5 fl (35.1-43.9); Red Blood Count 4.73 M/mm3 (4.2-5.4); White Blood Count 5.5 K/mm3 (4.4-11.0)
[2023-01-09 10:36] LABS: Microalbumin,Random Urine 6.9 mg/L (NO RANGE EST.); Microalbumin:Creatinine Ratio 14.5 mg/g CRE (<30 mg/g CRE)
[2023-01-09 10:45] LABS: ALB/GLOB Ratio 1.2 RATIO (0.9-2.4); AST(SGOT) 18 U/L (15-37); Alanine Aminotransfer ALT/SGPT 32 U/L (13-56); Albumin, Serum 3.8 g/dL (3.2-5.0); Alkaline Phosphatase 128 U/L (45-117); Anion Gap 3 (5-15); BUN 18 mg/dL (7-18); Calcium,Total 8.5 mg/dL (8.5-10.1); Chloride 108 mmol/L (98-107); Cholesterol 153 mg/dL (200); Creatinine, Serum 0.82 mg/dL (0.55-1.02); EST Glomerular Filtration Rate 78 mL/min (>60); Est Glom Filt Rate - Afr Amer 95 mL/min (>60); Globulin 3.3 g/dL (2.2-4.2); Glucose 99 mg/dL (74-106); High Density Lipoprotein 65 mg/dL; Potassium 4.3 mmol/L (3.5-5.1); Protein, Total 7.1 g/dL (6.4-8.2); Sodium Level 140 mmol/L (136-145); Triglycerides 70 mg/dL; Very Low Density Lipoprotein 14 mg/dL (5-40)
[2023-01-11 09:49] LABS: Vitamin D,25 Hydroxy 33.2 ng/mL
== END | disposition home or self-care (01) ==
LOC: LAB 08:52
PROVIDERS: PCP Internal Medicine; Referring Provider Internal Medicine; Visit Provider Internal Medicine
DX: E78.00 Pure hypercholesterolemia, unspecified (principal); C64.1 Malignant neoplasm of right kidney, except renal pelvis; E55.9 Vitamin D deficiency, unspecified
CPT/HCPCS: 36415; 80053; 80061; 82043; 82306; 82570; 85025

== ENCOUNTER 2023-01-18 07:30 | Outpatient (RCR) | payer BC, SELFPAY | END 2023-02-09 23:59 | LOC: NS 07:30 | PROVIDERS: PCP Internal Medicine; Referring Provider Internal Medicine; Visit Provider Internal Medicine | DX: Z71.3 Dietary counseling and surveillance (principal); E66.01 Morbid (severe) obesity due to excess calories; Z68.41 Body mass index [BMI] 40.0-44.9, adult; K76.0 Fatty (change of) liver, not elsewhere classified | CPT/HCPCS: 97803 ==

== ENCOUNTER → 2023-01-31 | Outpatient (CLI) | payer BC, SELFPAY ==
[2023-01-31 16:50] LABS: Absolute Lymphocyte Count 1.77 X10^3/uL (0.83-4.51); Absolute Neutrophil Count 4.9 X10^3/uL (2.0-7.7); Basophil# 0.05 X10^3/uL; Basophil% 0.6 % (0-1); Eosinophils% 2.6 % (0-5); Hematocrit 50.9 % (37-47); Hemoglobin 16.5 g/dL (12.0-15.0); Lymphocyte # 1.77 X10^3/ul (0.83-4.51); Lymphocyte % 22.8 % (19-41); Mean Corp Hgb Conc 32.4 g/dL (32-36); Mean Corpuscular Hgb 31.4 pg (27.0-32.0); Mean Platelet Vol. 10.6 fl (6.2-12.0); Monocyte% 10.3 % (0-10); NRBC Flagged by Analyzer 0 % (0-5); Neutrophil # 4.93 X10^3/uL (2.7-7.7); Neutrophil % 63.3 % (47-70); Platelet Count 256 K/mm3 (150-450); RBC Distribution Width CV 12.5 % (11.6-14.6); RBC Distribution Width SD 44.7 fl (35.1-43.9); Red Blood Count 5.25 M/mm3 (4.2-5.4); White Blood Count 7.8 K/mm3 (4.4-11.0)
[2023-01-31 17:36] LABS: AST(SGOT) 17 U/L (15-37); Alanine Aminotransfer ALT/SGPT 40 U/L (13-56); Albumin, Serum 3.8 g/dL (3.2-5.0); Alkaline Phosphatase 126 U/L (45-117); Anion Gap -16 (5-15); BUN 20 mg/dL (7-18); BUN/Creat Ratio 21.5 RATIO (10-20); Calcium,Total 9.6 mg/dL (8.5-10.1); Chloride 114 mmol/L (98-107); Creatinine, Serum 0.93 mg/dL (0.55-1.02); EST Glomerular Filtration Rate 68 mL/min (>60); Est Glom Filt Rate - Afr Amer 82 mL/min (>60); Globulin 3.9 g/dL (2.2-4.2); Glucose 95 mg/dL (74-106); Potassium 3.6 mmol/L (3.5-5.1); Protein, Total 7.7 g/dL (6.4-8.2); Sodium Level 128 mmol/L (136-145); Troponin-I HS 7 pg/mL (3.0-54.0)
== END | disposition home or self-care (01) ==
PROVIDERS: PCP Internal Medicine; Visit Provider Internal Medicine
DX: Z00.00 Encounter for general adult medical examination without abnormal findings (principal)
CPT/HCPCS: 36415; 80053; 84484; 85025

== ENCOUNTER 2023-02-15 07:25 | Outpatient (RCR) | payer BC, SELFPAY | END 2023-03-11 23:59 | LOC: NS 07:25 | PROVIDERS: PCP Internal Medicine; Referring Provider Internal Medicine; Visit Provider Internal Medicine | DX: Z71.3 Dietary counseling and surveillance (principal); E66.01 Morbid (severe) obesity due to excess calories; K76.0 Fatty (change of) liver, not elsewhere classified | CPT/HCPCS: 97803 ==

== ENCOUNTER → 2023-02-15 | Outpatient (CLI) | payer BC, SELFPAY ==
[2023-02-15 08:54] LABS: Absolute Lymphocyte Count 1.64 X10^3/uL (0.83-4.51); Absolute Neutrophil Count 3.7 X10^3/uL (2.0-7.7); Basophil# 0.05 X10^3/uL; Basophil% 0.8 % (0-1); Eosinophil# 0.15 X10^3/uL; Eosinophils% 2.4 % (0-5); Hematocrit 47.7 % (37-47); Hemoglobin 15.3 g/dL (12.0-15.0); Lymphocyte # 1.64 X10^3/ul (0.83-4.51); Lymphocyte % 26.5 % (19-41); Mean Corp Hgb Conc 32.1 g/dL (32-36); Mean Corpuscular Volume 96.8 fL (81-99); Mean Platelet Vol. 10.9 fl (6.2-12.0); Monocyte# 0.64 X10^3/uL; Monocyte% 10.3 % (0-10); NRBC Flagged by Analyzer 0 % (0-5); Neutrophil # 3.68 X10^3/uL (2.7-7.7); Neutrophil % 59.5 % (47-70); Platelet Count 220 K/mm3 (150-450); RBC Distribution Width CV 12.2 % (11.6-14.6); RBC Distribution Width SD 43.6 fl (35.1-43.9); Red Blood Count 4.93 M/mm3 (4.2-5.4); White Blood Count 6.2 K/mm3 (4.4-11.0)
[2023-02-15 09:00] LABS: Ionized Calcium 4.73 mg/dL (4.36-5.20)
== END | disposition home or self-care (01) ==
LOC: LAB 08:37
PROVIDERS: PCP Internal Medicine; Referring Provider Internal Medicine; Visit Provider Internal Medicine
DX: C64.1 Malignant neoplasm of right kidney, except renal pelvis (principal); Z86.39 Personal history of other endocrine, nutritional and metabolic disease
CPT/HCPCS: 36415; 82330; 85025

== ENCOUNTER → 2023-02-18 | Outpatient (CLI) | payer BC, SELFPAY ==
--- NOTE | 2023-02-18 12:48 | CT_ITS ---
EXAM: CT CHEST, ABDOMEN AND PELVIS WITHOUT INTRAVENOUS CONTRAST CLINICAL INDICATION: MONITOR KIDNEY CA TECHNIQUE: Helically acquired images were obtained of the chest, abdomen and pelvis without intravenous contrast. This CT exam was performed using one or more of the following dose reduction techniques: automated exposure control, adjustment of the mA and/or kV according to patient size, and/or use of iterative reconstruction technique. COMPARISON: 02/12/2022 FINDINGS: CHEST: LUNGS AND PLEURAL SPACES: Unremarkable. No mass. No consolidation or edema. No pleural effusion or thickening. No pneumothorax. HEART: Unremarkable. Heart size is normal. No pericardial effusion. No significant coronary artery calcifications. MEDIASTINUM: Unremarkable. No mediastinal or hilar adenopathy. Esophagus is unremarkable. No hiatal hernia. THYROID: Unremarkable. No thyroid lesions. ABDOMEN: LIVER: Unremarkable. Homogeneous. GALLBLADDER AND BILE DUCTS: There are surgical clips from a cholecystectomy. No intra- or extrahepatic biliary ductal dilation. PANCREAS: Unremarkable. No focal cystic mass. SPLEEN: Unremarkable. Normal size without focal cystic or solid mass. ADRENALS: Unremarkable. No nodules. KIDNEYS AND URETERS: Patient status post right nephrectomy. STOMACH AND BOWEL: There is an anterior diaphragmatic hernia with a portion of transverse colon and anterior to the heart. This was not seen on the previous examination. No stomach or bowel distention. No focal inflammatory change. PELVIS: APPENDIX: No evidence of acute appendicitis. BLADDER: Unremarkable. REPRODUCTIVE: Unremarkable as visualized. No mass. CHEST, ABDOMEN and PELVIS: INTRAPERITONEAL SPACE: Unremarkable. No ascites or other fluid collection. No free air. BONES/JOINTS: Unremarkable. No suspicious lytic or blastic abnormality. SOFT TISSUES: Unremarkable. No discrete abdominal or pelvic wall hernia. VASCULATURE: Unremarkable. Aorta is non-dilated. LYMPH NODES: Unremarkable. No enlarged lymph nodes. CT/CT Chest, Abd, Pelvis WO Cont IMPRESSION: 1. Anterior diaphragmatic hernia with a portion of the transverse colon anterior to the heart within the lower chest. 2. Status post right nephrectomy. There are no other acute abnormalities within the chest, abdomen or pelvis. Electronically Signed: Farhad Banegas MD at 0:04 EST ,
--- NOTE | 2023-02-18 13:14 | BI_ITS ---
MAMMOGRAPHY - BILATERAL SCREENING REASON FOR EXAM: Female, 52 years old. Routine annual screening examination. PERTINENT HISTORY: Non-contributory. TECHNIQUE: Digital bilateral breast bryan (3D mammographic acquisition) in the CC and MLO projections. 2-D mediolateral oblique (MLO) and craniocaudad (CC) views of both breasts were obtained. CAD: Full Field Digital Mammography with Computer Added Detection was performed. COMPARISON: Comparison is made with prior study dated February 16, 2022 and February 12, 2021. FINDINGS: Breast Composition: The breasts are heterogeneously dense, which may obscure small masses. There are no dominant masses or suspicious calcifications. Stable fat-containing left axillary lymph node. No other significant abnormalities are identified. There has been no significant change since the prior study. BI/SCRN MAMM (CAD)W/BRYAN BILAT IMPRESSION: Stable bilateral screening mammogram. Yearly follow-up mammogram recommended. (A) ASSESSMENT CATEGORY: BIRADS Category 2: Benign. A letter regarding these results will be sent to the patient by the facility within 30 days. Approximately 10% of breast cancers are not detected by mammography. A normal mammogram should not delay biopsy of a clinically suspicious abnormality. [id number] Electronically Signed: Jordon Real MD at 14:37 EST ,
== END | disposition home or self-care (01) ==
LOC: CT 12:46
PROVIDERS: PCP Internal Medicine; Referring Provider Internal Medicine Hematology & Oncology; Visit Provider Internal Medicine Hematology & Oncology
DX: Z12.31 Encounter for screening mammogram for malignant neoplasm of breast (principal); C64.9 Malignant neoplasm of unspecified kidney, except renal pelvis
CPT/HCPCS: 71250; 74176; 77063; 77067

== ENCOUNTER 2023-04-20 07:29 | Outpatient (RCR) | payer BC, SELFPAY | END 2023-05-12 23:59 | LOC: NS 07:29 | PROVIDERS: PCP Internal Medicine; Referring Provider Internal Medicine; Visit Provider Internal Medicine | DX: Z71.3 Dietary counseling and surveillance (principal); E66.01 Morbid (severe) obesity due to excess calories; K76.0 Fatty (change of) liver, not elsewhere classified; E78.2 Mixed hyperlipidemia | CPT/HCPCS: 97803 ==

== ENCOUNTER 2023-05-01 10:41 | Outpatient (RCR) | payer BC, SELFPAY ==
[2023-05-01 11:28] LABS: Anion Gap 4 (5-15); BUN 25 mg/dL (7-18); BUN/Creat Ratio 24.5 RATIO (10-20); Calcium,Total 9.8 mg/dL (8.5-10.1); Chloride 108 mmol/L (98-107); Creatinine, Serum 1.02 mg/dL (0.55-1.02); EST Glomerular Filtration Rate 61 mL/min (>60); Est Glom Filt Rate - Afr Amer 74 mL/min (>60); Glucose 82 mg/dL (74-106); Potassium 4.3 mmol/L (3.5-5.1); Sodium Level 140 mmol/L (136-145)
== END 2023-05-01 18:00 | disposition home or self-care (01) ==
LOC: LAB 10:41
PROVIDERS: PCP Internal Medicine; Referring Provider Internal Medicine; Visit Provider Internal Medicine
DX: C64.1 Malignant neoplasm of right kidney, except renal pelvis (principal)
CPT/HCPCS: 36415; 80048

== ENCOUNTER 2023-05-29 11:22 | Outpatient (RCR) | payer BC, SELFPAY ==
[2023-05-15 10:53] LABS: Anion Gap 0 (5-15); BUN 23 mg/dL (7-18); BUN/Creat Ratio 26.9 RATIO (10-20); Calcium,Total 9.5 mg/dL (8.5-10.1); Chloride 112 mmol/L (98-107); Creatinine, Serum 0.85 mg/dL (0.55-1.02); EST Glomerular Filtration Rate 75 mL/min (>60); Est Glom Filt Rate - Afr Amer 90 mL/min (>60); Glucose 93 mg/dL (74-106); Potassium 4.3 mmol/L (3.5-5.1); Sodium Level 141 mmol/L (136-145)
[2023-05-29 12:45] LABS: Anion Gap 6 (5-15); BUN 20 mg/dL (7-18); BUN/Creat Ratio 21.6 RATIO (10-20); Calcium,Total 9.7 mg/dL (8.5-10.1); Chloride 109 mmol/L (98-107); Creatinine, Serum 0.93 mg/dL (0.55-1.02); EST Glomerular Filtration Rate 68 mL/min (>60); Est Glom Filt Rate - Afr Amer 82 mL/min (>60); Glucose 69 mg/dL (74-106); Sodium Level 142 mmol/L (136-145)
== END 2023-06-10 18:00 | disposition home or self-care (01) ==
LOC: LAB 11:22
PROVIDERS: PCP Internal Medicine; Referring Provider Internal Medicine; Visit Provider Internal Medicine
DX: C64.1 Malignant neoplasm of right kidney, except renal pelvis (principal)
CPT/HCPCS: 36415; 80048

== ENCOUNTER 2023-06-15 07:24 | Outpatient (RCR) | payer BC, SELFPAY | END 2023-07-11 23:59 | LOC: NS 07:24 | PROVIDERS: PCP Internal Medicine; Referring Provider Internal Medicine; Visit Provider Internal Medicine | DX: Z71.3 Dietary counseling and surveillance (principal); E66.01 Morbid (severe) obesity due to excess calories; K76.0 Fatty (change of) liver, not elsewhere classified | CPT/HCPCS: 97803 ==

== ENCOUNTER → 2023-07-05 | Outpatient (CLI) | payer BC, SELFPAY ==
--- NOTE | 2023-07-05 10:15 | RAD_ITS ---
STUDY: X-RAY CHEST REASON FOR EXAM: Female, 52 years old. MALIGNANT NEOPLASM OF RIGHT KIDNEY TECHNIQUE: PA and lateral COMPARISON: December 21, 2022 FINDINGS: Extrapleural based density anteriorly at the right lung base obscuring the right middle lobe consistent with known hernia... There is no demonstrated pleural abnormality. Normal size heart. Normal mediastinum and luis a. Normal visualized pulmonary arteries. Normal visualized aortic arch and descending thoracic aorta. Dorsal spine demonstrates mild degenerative change. Normal visualized ribs, clavicles, and shoulders. There is no demonstrated abnormality of the visualized soft tissue structures of the upper abdomen. RAD/Chest PA and Lateral IMPRESSION: No acute cardiopulmonary pathology. Electronically Signed: Shiva Winston MD at 23:01 EDT ,
[2023-07-05 11:10] LABS: Hematocrit 42.7 % (37-47); Hemoglobin 14.5 g/dL (12.0-15.0); Mean Corpuscular Hgb 31.7 pg (27.0-32.0); Mean Corpuscular Volume 93.2 fL (81-99); Platelet Count 200 K/mm3 (150-450); RBC Distribution Width CV 12.9 % (11.6-14.6); RBC Distribution Width SD 43.8 fl (35.1-43.9); Red Blood Count 4.58 M/mm3 (4.2-5.4); White Blood Count 5.7 K/mm3 (4.4-11.0)
[2023-07-05 12:05] LABS: Anion Gap 8 (5-15); BUN 22 mg/dL (7-18); BUN/Creat Ratio 25.3 RATIO (10-20); Calcium,Total 9.2 mg/dL (8.5-10.1); Chloride 108 mmol/L (98-107); Creatinine, Serum 0.87 mg/dL (0.55-1.02); EST Glomerular Filtration Rate 73 mL/min (>60); Est Glom Filt Rate - Afr Amer 88 mL/min (>60); Glucose 103 mg/dL (74-106); Potassium 3.9 mmol/L (3.5-5.1); Sodium Level 142 mmol/L (136-145)
== END | disposition home or self-care (01) ==
LOC: RAD 10:06
PROVIDERS: PCP Internal Medicine; Referring Provider Urology; Visit Provider Urology
DX: C64.1 Malignant neoplasm of right kidney, except renal pelvis (principal)
CPT/HCPCS: 36415; 71046; 80048; 85027

== ENCOUNTER 2023-08-17 07:26 | Outpatient (RCR) | payer BC, SELFPAY | END 2023-09-10 23:59 | LOC: NS 07:26 | PROVIDERS: PCP Internal Medicine; Referring Provider Internal Medicine; Visit Provider Internal Medicine | DX: Z71.3 Dietary counseling and surveillance (principal); E66.01 Morbid (severe) obesity due to excess calories; K76.0 Fatty (change of) liver, not elsewhere classified; E78.2 Mixed hyperlipidemia | CPT/HCPCS: 97803 ==

== ENCOUNTER → 2023-09-18 | Outpatient (CLI) | payer BC, SELFPAY ==
[2023-09-18 11:56] LABS: Anion Gap 4 (5-15); BUN 21 mg/dL (7-18); BUN/Creat Ratio 21.4 RATIO (10-20); Calcium,Total 9.2 mg/dL (8.5-10.1); Chloride 108 mmol/L (98-107); Creatinine, Serum 0.98 mg/dL (0.55-1.02); EST Glomerular Filtration Rate 64 mL/min (>60); Est Glom Filt Rate - Afr Amer 77 mL/min (>60); Glucose 101 mg/dL (74-106); Sodium Level 140 mmol/L (136-145)
== END | disposition home or self-care (01) ==
LOC: LAB 11:00
PROVIDERS: PCP Internal Medicine; Referring Provider Internal Medicine; Visit Provider Internal Medicine
DX: C64.1 Malignant neoplasm of right kidney, except renal pelvis (principal)
CPT/HCPCS: 36415; 80048

== ENCOUNTER 2023-10-19 07:20 | Outpatient (RCR) | payer BC, SELFPAY | END 2023-11-10 23:59 | LOC: NS 07:20 | PROVIDERS: PCP Internal Medicine; Referring Provider Internal Medicine; Visit Provider Internal Medicine | DX: Z71.3 Dietary counseling and surveillance (principal); E66.01 Morbid (severe) obesity due to excess calories; K76.0 Fatty (change of) liver, not elsewhere classified; E78.2 Mixed hyperlipidemia | CPT/HCPCS: 97803 ==

== ENCOUNTER → 2023-12-11 | Outpatient (CLI) | payer BC, SELFPAY ==
[2023-12-11 10:22] LABS: Bacteria 0 SEEN /hpf (None Seen); Mucous, Urine 0 SEEN /hpf (<or=2+); Red Blood Cells-Urine 0 SEEN /hpf (0-5); White Blood Cells 0 SEEN /hpf (0-5)
[2023-12-11 10:47] LABS: Absolute Lymphocyte Count 1.46 X10^3/uL (0.83-4.51); Absolute Neutrophil Count 3.2 X10^3/uL (2.0-7.7); Basophil# 0.03 X10^3/uL; Basophil% 0.6 % (0-1); Color, Urine Yellow (Yellow); Eosinophil# 0.13 X10^3/uL; Eosinophils% 2.5 % (0-5); Glucose, Dipstick Normal (Normal); Hematocrit 44.8 % (37-47); Hemoglobin 14.6 g/dL (12.0-15.0); Ketone-Dipstick Negative (Negative); Leukocyte Esterase-Dipstick 100 /ul (Negative); Lymphocyte # 1.46 X10^3/ul (0.83-4.51); Lymphocyte % 27.8 % (19-41); Mean Corp Hgb Conc 32.6 g/dL (32-36); Mean Corpuscular Hgb 30.7 pg (27.0-32.0); Mean Corpuscular Volume 94.3 fL (81-99); Mean Platelet Vol. 10.5 fl (6.2-12.0); Monocyte# 0.46 X10^3/uL; Monocyte% 8.7 % (0-10); NRBC Flagged by Analyzer 0 % (0-5); Neutrophil # 3.17 X10^3/uL (2.7-7.7); Neutrophil % 60.2 % (47-70); Nitrite-Dipstick Negative (Negative); Occult Blood-Urine 25 /ul (Negative); Platelet Count 210 K/mm3 (150-450); Protein-Dipstick 15 mg/dl (Negative); RBC Distribution Width CV 13.1 % (11.6-14.6); RBC Distribution Width SD 45.5 fl (35.1-43.9); Red Blood Count 4.75 M/mm3 (4.2-5.4); Specific Gravity, Urine 1.015 (1.002-1.030); Urine Bilirubin Dipstick Negative (Negative); Urine Clarity Clear (Clear); Urine Urobilinogen Normal (Normal); White Blood Count 5.3 K/mm3 (4.4-11.0)
[2023-12-11 10:54] LABS: Squamous Epithelial Cells - UA 0-5 SEEN /hpf (5-10)
[2023-12-11 11:17] LABS: ALB/GLOB Ratio 1.1 RATIO (0.9-2.4); AST(SGOT) 22 U/L (15-37); Alanine Aminotransfer ALT/SGPT 32 U/L (13-56); Albumin, Serum 3.7 g/dL (3.2-5.0); Alkaline Phosphatase 76 U/L (45-117); Anion Gap 4 (5-15); BUN 17 mg/dL (7-18); BUN/Creat Ratio 17.1 RATIO (10-20); Chloride 107 mmol/L (98-107); Creatinine, Serum 0.99 mg/dL (0.55-1.02); EST Glomerular Filtration Rate 63 mL/min (>60); Est Glom Filt Rate - Afr Amer 76 mL/min (>60); Globulin 3.3 g/dL (2.2-4.2); Glucose 95 mg/dL (74-106); Potassium 4.2 mmol/L (3.5-5.1); Sodium Level 140 mmol/L (136-145)
[2023-12-14 07:41] LABS: Vitamin D,25 Hydroxy 47.6 ng/mL
== END | disposition home or self-care (01) ==
LOC: LAB 10:18
PROVIDERS: PCP Internal Medicine; Referring Provider Internal Medicine; Visit Provider Internal Medicine
DX: C64.1 Malignant neoplasm of right kidney, except renal pelvis (principal); E55.9 Vitamin D deficiency, unspecified
CPT/HCPCS: 36415; 80053; 81001; 82306; 85025

== ENCOUNTER 2023-12-21 07:12 | Outpatient (RCR) | payer BC, SELFPAY | END 2024-01-10 23:59 | LOC: NS 07:12 | PROVIDERS: PCP Internal Medicine; Referring Provider Internal Medicine; Visit Provider Internal Medicine | DX: Z71.3 Dietary counseling and surveillance (principal); E66.01 Morbid (severe) obesity due to excess calories; K76.0 Fatty (change of) liver, not elsewhere classified; E78.2 Mixed hyperlipidemia | CPT/HCPCS: 97803 ==

== ENCOUNTER → 2024-02-21 | Outpatient (CLI) | payer BC, SELFPAY ==
--- NOTE | 2024-02-21 12:57 | CT_ITS ---
STUDY: CT CHEST, ABDOMEN T PELVIS WITHOUT CONTRAST REASON FOR EXAM: Female, 53 years old. HX OF KIDNEY CA. Linear follow-up. RADIATION DOSAGE (If Supplied By Facility): CTDIvol = ( 25.94 ) mGy, DLP = ( 2297.96 ) mGycm TECHNIQUE: Transaxial imaging was performed without the administration of intravenous contrast material. Multiplanar coronal and sagittal images were reformatted. Individualized dose optimization techniques were used for this CT. COMPARISON: Comparison is made with prior study dated February 18, 2023. FINDINGS: CHEST There is elevation of the anterior aspect of the right hemidiaphragm. The lungs are normal. There is no demonstrated pleural abnormality. Normal heart and pericardium. Normal mediastinum. Normal hilar regions. Normal unenhanced pulmonary arteries. Normal aorta arch and descending thoracic aorta. There are multi-level degenerative changes of the thoracic spine. Increased kyphosis. ABDOMEN Once again, there is evidence of anterior diaphragmatic hernia with a portion of transverse colon. Normal liver. The gallbladder is contracted. Normal spleen. Normal pancreas. Normal bilateral adrenal glands. Status post right nephrectomy. Normal left kidney. Normal visualized stomach. Normal small intestine. There are scattered colonic diverticula consistent with diverticulosis. The appendix is visualized and appears normal. Normal abdominal aorta. Normal inferior vena cava. Normal retroperitoneum. Normal abdominal wall. Normal osseous structures. PELVIS Normal urinary bladder. There is no pelvic fluid. There is no pelvic lymphadenopathy or mass lesion. Normal visualized pelvic arteries. CT/CT Chest, Abd, Pelvis WO Cont IMPRESSION: Stable examination. Status post right nephrectomy. Electronically Signed: Jordon Real MD at 15:39 EST ,
--- NOTE | 2024-02-21 13:21 | BI_ITS ---
MAMMOGRAPHY - BILATERAL SCREENING REASON FOR EXAM: Female, 53 years old. Routine annual screening examination. PERTINENT HISTORY: Aunt with breast cancer. TECHNIQUE: Digital bilateral breast bryan (3D mammographic acquisition) in the CC and MLO projections. 2-D mediolateral oblique (MLO) and craniocaudad (CC) views of both breasts were obtained. CAD: Full Field Digital Mammography with Computer Added Detection was performed. COMPARISON: Comparison is made with prior study August 18, 2022 and February 16, 2022. FINDINGS: Breast Composition: There are scattered areas of fibroglandular density. There are no dominant masses or suspicious calcifications. Stable bilateral fat containing axillary lymph nodes. No other significant abnormalities are identified. There has been no significant change since the prior study. BI/SCRN MAMM (CAD)W/BRYAN BILAT IMPRESSION: Stable bilateral screening mammogram. Yearly follow-up mammogram recommended. (A) ASSESSMENT CATEGORY: BIRADS Category 2: Benign. A letter regarding these results will be sent to the patient by the facility within 30 days. Approximately 10% of breast cancers are not detected by mammography. A normal mammogram should not delay biopsy of a clinically suspicious abnormality. [id number] Electronically Signed: Jordon Real MD at 15:03 EST ,
== END | disposition home or self-care (01) ==
LOC: CT 12:49
PROVIDERS: PCP Internal Medicine; Referring Provider Urology; Visit Provider Internal Medicine Hematology & Oncology
DX: Z12.31 Encounter for screening mammogram for malignant neoplasm of breast (principal); C64.1 Malignant neoplasm of right kidney, except renal pelvis
CPT/HCPCS: 71250; 74176; 77063; 77067

== ENCOUNTER 2024-05-30 10:32 | Emergency (ER) | payer BC, SELFPAY ==
[2024-05-30 10:35] VITALS: BP 131/90; PULSE 92; RESP 16; TEMP 36.5; O2SAT 98; BMI 38.1
--- NOTE | 2024-05-30 11:30 | ED.VIS.GI ---
HPI HPI - GI History of Present Illness Chief Complaint: Nausea/Vomiting Informant: patient Abdominal Pain/Flank Pain Onset: - (Denies any abdominal pain.) Nausea/Vomiting/Emesis GI Symptom: Positive for Nausea and Vomiting Onset: Hours Severity: Mild Diarrhea/Melena/Hematochezia GI Symptom: Negative for Diarrhea, Melena or Hematochezia Associated Symptoms Associated Symptoms: Negative for Dysuria, Frequency or Hematuria Narrative Narrative: 53-year-old female past medical history of migraine headaches, hyperparathyroidism, prior renal cancer with 1 kidney resected on the right. Prior cholecystectomy and appendectomy. States this morning she started having nausea and vomiting x 2. No diarrhea. No melena. No fever. No known exposure. She lives alone at home. Brought in by squad. Given a dose of Zofran prior to arrival. Still feels nauseated. Denies any dysuria. No fever. No abdominal pain whatsoever. Prior similar symptoms: Yes Recent Illness/Hospitalization: No PFSH PFSH Medical History Diaphragmatic hernia Obesity Wears glasses High cholesterol Migraine headache Vertigo Non-smoker Shortness of breath on exertion Leg cramps Fatty liver Vitamin D deficiency Hyperparathyroidism Hypercalcemia Mixed hyperlipidemia Home Medications ?Medication ?Instructions ?Recorded ?Last Taken ?Type lutein 10 mg tablet 10 mg PO DAILY 10/23/21 11/06/21 History rosuvastatin 5 mg tablet 5 mg PO DAILY CHOLESTEROL 10/23/21 11/06/21 History zytrec PO 1XD 07/24/22 Unknown History calcium carbonate (Calcium 600) 600 mg PO DAILY 02/24/23 Unknown History cholecalciferol (vitamin D3) 50 50 mcg PO DAILY 02/24/23 Unknown History mcg (2,000 unit) capsule tirzepatide (weight loss) 7.5 7.5 mg subcut QWEEK 03/06/24 Unknown History mg/0.5 mL subcutaneous pen injector (Zepbound) ondansetron 4 mg disintegrating 4 mg PO Q6H PRN nausea and 05/30/24 Unknown Rx tablet vomiting #10 tabs Allergy/AdvReac Type Severity Reaction Status Date / Time Seasonal Allergies: Uncoded Allergy Intermediate Other Verified 05/30/24 10:38 (environmental) Family History Mother Colon cancer Diabetes Father Parkinson disease Skin cancer Aunt Breast cancer maternal - 60's Aunt Breast cancer paternal - 70-80s Aunt Diabetes Surgical History History of parathyroidectomy History of kidney removal Hx of colonoscopy History of hysteroscopy Hx of appendectomy Hx laparoscopic cholecystectomy Hx of tonsillectomy Social History household members: none housing: house number of children: 0 current occupational status: employed 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 Constitutional Constitutional ED: Denies chills or fever(s) ENT ENT ED: Denies ear pain Cardiovascular Cardiovascular: Denies chest pain Respiratory/Chest Respiratory/Chest: Denies cough or dyspnea Gastrointestinal Gastrointestinal: Reports nausea and vomiting; Denies abdominal pain, constipation, diarrhea or melena Genitourinary Genitourinary ED: Denies dysuria or hematuria Musculoskeletal Musculoskeletal: Denies arthralgias or back pain Integumentary Denies abscess Neurologic Neurologic: Denies headache(s) Psychiatric Psychiatric: Denies anxiety Endocrine Endocrinology: Denies polydipsia Hematologic/Lymphatic Hematologic/Lymphatic: Denies easy bleeding Allergic/Immunologic Allergic/Immunologic ED: Denies mouth swelling EXAM Physical Exam Narrative Exam Narrative: Well-appearing 53-year-old female. Vital signs stable afebrile. H EENT exam pupils round react light. Extra motions are intact. Neck nontender no JVD. No lymphadenopathy. Lungs did auscultation bilaterally. Heart regular rhythm no murmur. Rate about 90. Abdomen soft, nontender, nondistended normal bowel sounds without peritoneal signs. No hernia or mass. No distention. Completely nontender. Moving all 4 extremities. Nontender no edema. Normal budget assistant strength. Normal dorsi plantarflexion. Back nontender. Neurologically she is awake alert no focal motor deficits. NIH is 0. Const Vital Signs: 05/30/24 10:35 05/30/24 12:50 Temperature 97.7 F L Temperature Source Oral Pulse Rate 92 64 Respiratory Rate 16 18 Blood Pressure 131/90 H 128/78 H Blood Pressure Mean 103 94 Pulse Ox 98 100 Oxygen Delivery Method Room Air Room Air Positive well nourished and well developed; Negative for cachectic, contractures or unkempt General Appearance ED: well developed and NAD; Negative for unkempt, cachectic, contractures or pallor Nutritional Appearance: Negative for cachectic HEENT Reports moist mucous membranes normocephalic and atraumatic; Negative for trauma or tenderness Eyes PERRL and EOMs intact bilaterally General Eye ED: Negative for pale conjunctiva or scleral icterus Neck no lymphadenopathy, supple and no JVD General: Negative for tenderness Lymph Lymphatic: Negative for other Resp normal respiratory effort and clear to auscultation bilaterally Effort and Inspection: Negative for respiratory distress Auscultation: Negative for rales, rhonchi, wheezes or diminished lung sounds Cardio regular rate, regular rhythm, S1 normal heart sound, S2 normal heart sound and no murmurs Rate: Negative for bradycardia or tachycardic Rhythm: Negative for abnormal rhythm GI non-tender, non-distended and no masses Inspection: Negative for abdominal distention Auscultation: normoactive bowel sounds Palpation: soft; Negative for tender, guarding, hernia, mass or rebound tenderness present Back/Spine no CVA tenderness General Back: Negative for CVA tenderness Cervical Spine: Negative for cervical spine tenderness Thoracic Spine / Upper Back: Negative for thoracic spinal tenderness Lumbar Spine / Lower Back: Negative for lumbar spinal tenderness Coccyx: Negative for other Extremity full ROM General Extremety ED: Negative for edema or tenderness General Extremity: Negative for edema Neuro CN's II-XII intact bilaterally and moves all extremities Sensorium / Orientation: alert, oriented to person, oriented to place and oriented to time; Negative for orientation impaired or confused Motor Exam: strength 5/5 throughout; Negative for general weakness or strength abnormal Psych mental status grossly normal and thought process normal Appearance: Negative for unkempt Attitude: No agitated Mood & Affect: Negative for depressed, anxious or tearful Skin no wounds General Skin Exam: Negative for jaundice or pallor Lesions: no lesions Rashes: no rashes MDM MDM MDM Narrative Medical decision making narrative: 53-year-old female with nausea vomiting suspect viral gastroenteritis. Currently no diarrhea. Treated with IV fluids. IV Zofran. I am going to check a CBC and a chemistry due to her only having 1 kidney. Her abdomen is completely nontender I do not think she needs any imaging. Repeat exam at 1:45 PM patient looks and is feeling much better. She will be discharged on prescription for Zofran. Fluids and rest. Increase her diet slowly as tolerated. Follow-up as needed or return if worse. On repeat exam abdomen is completely nontender. History & Record Review Additional record(s) reviewed:: Prior inpatient record, Prior outpatient record, Prior ED visit and Prior labs Lab Data Attestation: I reviewed the patient's lab results. Lab results narrative: CBC normal. White count 7. H&H 14 and 43. Platelets 198. Electrolytes show 10. Normal BUN of 18 creatinine 0.84. Glucose 112. Labs: Laboratory Results - last 24 hr 05/30/24 11:35 WBC 7.6 RBC 4.72 Hgb 14.7 Hct 43.4 MCV 91.9 MCH 31.1 MCHC 33.9 RDW Std Deviation 43.9 RDW Coeff of [place] 13.0 Plt Count 198 MPV 10.7 Immature Gran % (Auto) 0.400 Neut % (Auto) 80.8 H Lymph % (Auto) 12.5 L Hutchinson % (Auto) 5.4 Eos % (Auto) 0.5 Baso % (Auto) 0.4 Absolute Neuts (auto) 6.2 Absolute Lymphs (auto) 0.95 Nucleated RBC % 0 Sodium 145 Potassium 3.7 Chloride 110 H Carbon Dioxide 25.0 Anion Gap 10 BUN 18 Creatinine 0.84 Estim Creat Clear Calc 81.65 Est GFR (MDRD) Af Amer 91 Est GFR (MDRD) Non-Af 75 BUN/Creatinine Ratio 21.3 H Glucose 112 H Calcium 9.1 Discharge Plan Triage Chief Complaint: Nausea/Vomiting ED Provider: Steven Myers Dx/Rx/DC Orders Clinical Impression: Nausea & vomiting, Viral syndrome, History of renal carcinoma Instructions: ED Vomiting (Adult) Prescriptions: New ondansetron 4 mg tablet,disintegrating 4 mg PO Q6H PRN (Reason: nausea and vomiting) Qty: 10 0RF No Action rosuvastatin 5 mg tablet 5 mg PO DAILY lutein 10 mg tablet 10 mg PO DAILY Rx Instructions: give with meal/snack zytrec PO 1XD cholecalciferol (vitamin D3) 50 mcg (2,000 unit) capsule 50 mcg PO DAILY calcium carbonate [Calcium 600] 600 mg calcium (1,500 mg) tablet 600 mg PO DAILY Zepbound 7.5 mg/0.5 mL pen injector 7.5 mg subcut QWEEK Primary Care Provider: Eileen Wayne Referrals: Eileen Wayne MD [Primary Care Provider] - 1-2 Days if not improving Activity Restrictions/Additional Instructions: Zofran as needed for nausea. You may swallow or let dissolve on your tongue. Plenty of fluids and rest. Water, Gatorade and 7-Up and increase your diet slowly as tolerated. Follow-up with your doctor as needed if not improving or return if worse. Off work today and tomorrow. Print Language: Paraguayan Disposition Disposition: Home, Self Care
[2024-05-30] MEDS: 0.9% Normal Saline (1000mL) 1,000 ML 1000 ML IV (11:36)
[2024-05-30] MEDS: Ondansetron 4 MG/2 ML Vial IV (11:38)
[2024-05-30 11:40] LABS: Absolute Lymphocyte Count 0.95 X10^3/uL (0.83-4.51); Absolute Neutrophil Count 6.2 X10^3/uL (2.0-7.7); Basophil# 0.03 X10^3/uL; Basophil% 0.4 % (0-1); Eosinophil# 0.04 X10^3/uL; Eosinophils% 0.5 % (0-5); Hematocrit 43.4 % (37-47); Hemoglobin 14.7 g/dL (12.0-15.0); Lymphocyte # 0.95 X10^3/ul (0.83-4.51); Lymphocyte % 12.5 % (19-41); Mean Corp Hgb Conc 33.9 g/dL (32-36); Mean Corpuscular Hgb 31.1 pg (27.0-32.0); Mean Corpuscular Volume 91.9 fL (81-99); Mean Platelet Vol. 10.7 fl (6.2-12.0); Monocyte# 0.41 X10^3/uL; Monocyte% 5.4 % (0-10); NRBC Flagged by Analyzer 0 % (0-5); Neutrophil # 6.16 X10^3/uL (2.7-7.7); Neutrophil % 80.8 % (47-70); Platelet Count 198 K/mm3 (150-450); RBC Distribution Width SD 43.9 fl (35.1-43.9); Red Blood Count 4.72 M/mm3 (4.2-5.4); White Blood Count 7.6 K/mm3 (4.4-11.0)
[2024-05-30 11:55] LABS: Anion Gap 10 (5-15); BUN 18 mg/dL (7-18); BUN/Creat Ratio 21.3 RATIO (10-20); Calcium,Total 9.1 mg/dL (8.5-10.1); Chloride 110 mmol/L (98-107); Creatinine, Serum 0.84 mg/dL (0.55-1.02); EST Glomerular Filtration Rate 75 mL/min (>60); Est Glom Filt Rate - Afr Amer 91 mL/min (>60); Estimated Creatinine Clearance 81.65 ml/min; Glucose 112 mg/dL (74-106); Potassium 3.7 mmol/L (3.5-5.1); Sodium Level 145 mmol/L (136-145)
[2024-05-30 12:50] VITALS: BP 128/78; PULSE 64; RESP 18; O2SAT 100
[2024-05-30 14:04] VITALS: BP 135/96; PULSE 90; RESP 17; TEMP 36.8; O2SAT 98
== END 2024-05-30 14:04 | disposition home or self-care (01) ==
PROVIDERS: Emergency Provider Emergency Medicine; PCP Internal Medicine; Visit Provider Emergency Medicine
DX: B34.9 Viral infection, unspecified (principal); R11.2 Nausea with vomiting, unspecified
CPT/HCPCS: 80048; 85025; 96361; 96374; 96376; 99285; A4216; J2405

== ENCOUNTER → 2024-07-10 | Outpatient (CLI) | payer BC, SELFPAY ==
--- NOTE | 2024-07-10 16:52 | RAD_ITS ---
PROCEDURE: CHEST PA AND LATERAL 07/10/2024 REASON FOR EXAM: MALIGNANT MEOPLASAM OF RIGHT KIDNEYMEXCEPT RENAL PELVIS TECHNIQUE: Frontal and lateral views of the chest. PA and lateral COMPARISON: 07/05/2023 FINDINGS: Large appearing anterior Morgagni type hernia containing bowel again noted. The lungs otherwise appear clear. No pleural effusion. Cardiac silhouette appears within limits for size. Status post cholecystectomy. Visualized osseous structures appear within limits. RAD/Chest PA and Lateral IMPRESSION: No significant interval change in appearance of the chest as above. Reading Location: [id number]
[2024-07-10 16:54] LABS: Hematocrit 46.4 % (37-47); Hemoglobin 15.5 g/dL (12.0-15.0); Mean Corp Hgb Conc 33.4 g/dL (32-36); Mean Corpuscular Hgb 31.1 pg (27.0-32.0); Mean Corpuscular Volume 93.2 fL (81-99); Platelet Count 250 K/mm3 (150-450); RBC Distribution Width CV 12.9 % (11.6-14.6); Red Blood Count 4.98 M/mm3 (4.2-5.4); White Blood Count 8.2 K/mm3 (4.4-11.0)
[2024-07-10 17:28] LABS: Anion Gap 12 (5-15); BUN 17 mg/dL (4-19); BUN/Creat Ratio 18.6 RATIO (10-20); Calcium,Total 9.3 mg/dL (7.6-11.0); Carbon Dioxide 25.1 mmol/L (21.0-32.0); Chloride 104 mmol/L (98-108); EST Glomerular Filtration Rate 77 (>60); Glucose 108 mg/dL (70-99); Potassium 3.7 mmol/L (3.3-5.1); Sodium Level 141 mmol/L (133-145)
== END | disposition home or self-care (01) ==
LOC: LAB 16:30
PROVIDERS: PCP Internal Medicine; Referring Provider Urology; Visit Provider Urology
DX: C64.1 Malignant neoplasm of right kidney, except renal pelvis (principal)
CPT/HCPCS: 36415; 71046; 80048; 85027

== ENCOUNTER 2024-08-10 18:30 | Outpatient (RCR) | payer BC, SELFPAY ==
--- NOTE | 2024-07-14 07:29 | HP.PTEVAL_ITS ---
Patient's Visit Information Visit Information Visit Information: CRISTOFER NEWTON is a 53 year old F referred to Physical Therapy by Dr. Eileen Wayne MD with a diagnosis of vertigo. Date of Evaluation: 07/14/24 Physical Therapist: Boone Pham, DPT, OCS, CSCS Visit Plan Frequency: 1-2x /Week Duration: 2-4 Weeks Plan: weekly x 2-4 weeks as needed for positional checks and treatments. L di modified performed today and instruct with HO. Subjective Subjective: Got spinning 05/30 waking up with dizzyness and went to ER. nausea. Nausea often since then intermittently, lightheaded at times.Spinning is mostly at night lying head down lasting a few seconds. treated on Wednesday ordered by Rosana with R Di. No treatments from ER but zofran , not taken latey. Since Wednesday, feeling better, no spinning. Slight ightheadedness one time lying down. nauseous intermittent . was good. Objective Objective: Walk into PT I. Feels nauseous but no spinning lately. balance is good and transitions are I. cervical aROM WFL and without pain. - R HD today. + L HD for up torsional nystagmus 15 sec, treated with di and then - HD. Balance/Special Test Scores Functional Gait Assessment Score: 29 % Disability: 3.3400 Dizziness Score: 50 Goals Goal 1:: abolish vertigo x 4 days Goal Time Frame: 2-4 Weeks Goal 2:: Pt feel 100% back to normal without nausea Goal Time Frame: 2-4 Weeks Rehabilitation Potential Physical Therapy Diagnosis: BPPV L post canal Rehabilitation Potential: Good Anticipated Interventions Patient/Client Instruction: Educate patient on: Condition and Plan of Care For the Purpose of:: To increase tolerance to activity/condition/position Comment: positional treatmeents For the Purpose of:: To increase tolerance to activity/condition/position Text: Thank you for the opportunity to evaluate your patient. For Medicare and Medicare HMO plans, please review the plan of care and approve it. It will need to be FAXED BACK to us at [phone] for Medicare purposes. For Medicare only, by signing this I certify the plan of care. Please let me know if there are questions or concerns regarding this plan of care. Physician Signature: Date:
--- NOTE | 2024-08-10 18:31 | HP.PTDCSUM ---
Discharge Summary D/C summary: It has been my pleasure to treat CRISTOFER NEWTON referred by Dr. Eileen Wayne MD, with the diagnosis of vertigo for a total of 4 visit(s). Discharge Date: 08/10/24 Please see the following information for a summary of their discharge status. Subjective Subjective: No dizzyness since last session. Been doing ex daily and no dizzyness with exercises. Activitiy normal. Rolling in bed is not a problem. Overall Improvement % Improvement: 100 Objective Objective/Function: - B hallpike danyell improved adn normal FGA Activities back to normal. Goals Goal 1:: abolish vertigo x 4 days Goal Progress: Goal Met Goal 2:: Pt feel 100% back to normal without nausea Goal Progress: Progressing Plan Plan: d/c D/C Information Discharge Comments: abolished dizzyness. d/c sentence: If there are questions or concerns regarding this patient's physical therapy, please feel free to call me at [phone]. Thank you for the referral of this patient. Sincerely, Boone Pham, DPT, OCS, CSCS Balance/Gait/Functional tests Balance/Special Test Scores Functional Gait Assessment Score: 30 % Disability: 0 Dizziness Score: 0 Improvement % Improvement: 100
== END 2024-08-10 19:00 | disposition home or self-care (01) ==
LOC: PT 18:30
PROVIDERS: PCP Internal Medicine; Referring Provider Internal Medicine; Visit Provider Internal Medicine
DX: H81.10 Benign paroxysmal vertigo, unspecified ear (principal)
CPT/HCPCS: 97161; 97530

== ENCOUNTER → 2024-12-09 | Outpatient (CLI) | payer BC, SELFPAY ==
[2024-12-09 12:08] LABS: Color, Urine Yellow (Yellow); Glucose, Dipstick Normal (Normal); Ketone-Dipstick Negative (Negative); Leukocyte Esterase-Dipstick 25 /ul (Negative); Nitrite-Dipstick Negative (Negative); Occult Blood-Urine 10 /ul (Negative); Protein-Dipstick 30 mg/dl (Negative); Specific Gravity, Urine 1.020 (1.002-1.030); Urine Bilirubin Dipstick Negative (Negative)
[2024-12-09 12:31] LABS: Creatinine, Urine (random) 127.00 mg/dL (28.00-217.00); Microalbumin,Random Urine < 12.0 mg/L (<20 mg/L)
[2024-12-09 12:34] LABS: AST(SGOT) 21 U/L (<=31); Alanine Aminotransfer ALT/SGPT 27 U/L (<=34); Albumin, Serum 4.3 g/dL (3.5-5.0); Alkaline Phosphatase 84 U/L (35-104); Anion Gap 13 (5-15); BUN 17 mg/dL (4-19); BUN/Creat Ratio 19.2 RATIO (10-20); Calcium,Total 9.3 mg/dL (7.6-11.0); Carbon Dioxide 23.5 mmol/L (21.0-32.0); Chloride 106 mmol/L (98-108); Cholesterol 155 mg/dL (<=200); Globulin 2.8 g/dL (2.2-4.2); Glucose 98 mg/dL (70-99); Low Density Lipoprotein Calc. 70 mg/dL; Potassium 4.2 mmol/L (3.3-5.1); Triglycerides 142 mg/dL; Very Low Density Lipoprotein 28 mg/dL (5-40); cholesterol:hdl ratio screen 2.71
== END | disposition home or self-care (01) ==
PROVIDERS: PCP Internal Medicine; Visit Provider Internal Medicine
DX: C64.1 Malignant neoplasm of right kidney, except renal pelvis (principal)
CPT/HCPCS: 36415; 80053; 80061; 81002; 82043; 82570

== ENCOUNTER → 2025-02-10 | Outpatient (CLI) | payer BC, SELFPAY ==
[2025-02-10 08:15] LABS: Hematocrit 43.7 % (37-47); Hemoglobin 14.7 g/dL (12.0-15.0); Immature Granulocytes Count 0.020 X10^3/uL (0.0-0.0); Mean Corp Hgb Conc 33.6 g/dL (32-36); Mean Corpuscular Volume 92.8 fL (81-99); Mean Platelet Vol. 10.6 fl (6.2-12.0); NRBC Flagged by Analyzer 0 % (0-5); Platelet Count 180 K/mm3 (150-450); RBC Distribution Width CV 12.8 % (11.6-14.6); RBC Distribution Width SD 43.7 fl (35.1-43.9); Red Blood Count 4.71 M/mm3 (4.2-5.4); White Blood Count 5.5 K/mm3 (4.4-11.0)
[2025-02-10 08:58] LABS: Albumin, Serum 4.3 g/dL (3.5-5.0); Anion Gap 11 (5-15); BUN 17 mg/dL (4-19); BUN/Creat Ratio 18.7 RATIO (10-20); Calcium,Total 9.1 mg/dL (7.6-11.0); Carbon Dioxide 25.4 mmol/L (21.0-32.0); Chloride 105 mmol/L (98-108); Ferritin 95 ng/mL (22-378); Glucose 107 mg/dL (70-99); Potassium 3.9 mmol/L (3.3-5.1); Vitamin D,25 Hydroxy 59.4 ng/mL (30-100)
[2025-02-17 10:08] LABS: Vitamin A, Retinol 63.2 ug/dL (20.1-62.0); Zinc, WHOLE BLOOD 674 ug/dL (459-781)
== END | disposition home or self-care (01) ==
LOC: LAB 07:45
PROVIDERS: PCP Internal Medicine; Referring Provider Internal Medicine; Visit Provider Internal Medicine
DX: L60.8 Other nail disorders (principal); C64.1 Malignant neoplasm of right kidney, except renal pelvis; E55.9 Vitamin D deficiency, unspecified
CPT/HCPCS: 36415; 80069; 82306; 82728; 84590; 84630; 85025

== ENCOUNTER → 2025-02-21 | Outpatient (CLI) | payer BC, SELFPAY ==
--- NOTE | 2025-02-21 13:11 | CT_ITS ---
PROCEDURE: CT CHEST, ABD, PELVIS WO CONT 02/21/2025 REASON FOR EXAM: Surveillance after right nephrectomy TECHNIQUE: Chest, abdomen and pelvis CT without intravenous contrast. Coronal and Sagittal reconstruction series were provided. One or more dose reduction techniques were used (e.g., Automated exposure control, adjustment of the mA and/or kV according to patient size, use of iterative reconstruction technique. No oral contrast. RADIATION DOSE SUMMARY: CTDlvol: 47.85 mGy DLP: 2160.71 mGycm COMPARISON: 02/21/2024 FINDINGS: CT CHEST: Lung windows show the lungs to be normally expanded. Stable elevation of the right hemidiaphragm. No organized infiltrate, effusion, or suspicious noncalcified mass or nodule. Soft tissue windows show a normal-appearing thyroid gland. No suspicious axillary, mediastinal or perihilar adenopathy. The thoracic aorta tapers normally. No calcified coronary vessels. CT ABDOMEN / PELVIS: Noncontrast technique limits evaluation of the abdominal and pelvic viscera. Liver: Normal size. No mass. Gallbladder: Surgically absent. Spleen: Normal size. Pancreas: Normal size without evidence of mass surrounding inflammation or ductal dilation. Adrenals: Unremarkable Kidneys: Previous right nephrectomy, no suspicious soft tissue mass or adenopathy in the right nephrectomy bed. The left kidney shows no obstructive uropathy or suspicious solid renal lesion, no stones are identified. Bladder: Incompletely distended but otherwise unremarkable Reproductive Organs: Normal-appearing uterus. The endometrium can not be accurately evaluated with CT. No suspicious enlarged cystic mass or free fluid. Bowel: No CTA evidence of obstruction or acute inflammatory process. Appendix: Not visualized Lymph nodes: No suspicious mesenteric or retroperitoneal adenopathy Vasculature: The abdominal aorta and IVC are normal. Peritoneum / Retroperitoneum: No free air or fluid Bones: Mild degenerative changes, no suspicious osseous lesion CT/CT Chest, Abd, Pelvis WO Cont IMPRESSION: Stable exam, no CT evidence of metastasis Stable appearance of the right nephrectomy bed, no suspicious adenopathy or rasheeda id mass lesion No acute pulmonary process Mild degenerative bony changes Reading Location: [facility]
--- NOTE | 2025-02-21 13:45 | BI_ITS ---
EXAM: SCRN MAMM (CAD)W/BRYAN BILAT DATE: 02/21/2025 CLINICAL HISTORY: F, Age 54 y/o , ANNUAL SCREENING TECHNIQUE: Procedure Code: [id number] Modality: MG Procedure: SCRN MAMM (CAD)W/BRYAN BILAT COMPARISON: Prior exam(s) were compared FINDINGS: TISSUE DENSITY: The breasts are heterogeneously dense, which may obscure small masses. Bilateral Breast Mammographic Findings: No significant masses, calcifications or other abnormalities are identified. BI/SCRN MAMM (CAD)W/BRYAN BILAT IMPRESSION: No mammographic evidence of malignancy in either breast. OVERALL FINAL ASSESSMENT BI-RADS 1: NEGATIVE. RECOMMENDATION: Routine annual follow-up in 1 Year Additional Recommendation none A letter with findings and recommendations will be mailed to the patient. Reading Location: [id number]
== END | disposition home or self-care (01) ==
PROVIDERS: PCP Internal Medicine; Referring Provider Internal Medicine Hematology & Oncology; Visit Provider Internal Medicine Hematology & Oncology
DX: Z12.31 Encounter for screening mammogram for malignant neoplasm of breast (principal); C64.1 Malignant neoplasm of right kidney, except renal pelvis
CPT/HCPCS: 71250; 74176; 77063; 77067